=== PATIENT | male | born 1955 | race Caucasian/White ===

== ENCOUNTER → 2020-04-29 14:37 | Outpatient (CLI) | payer MEDICARE, SELFPAY ==
--- NOTE | ~2020-04-29 | US_ITS ---
EXAMINATION: US soft tissue groin RT DATE: 04/29/2020 15:12 INDICATION: Right inguinal mass TECHNIQUE: Multiple grayscale and Doppler ultrasound images of the right groin were obtained. COMPARISON: Left femur MRI dated 05/22/2014 FINDINGS: There are several normal sized right inguinal lymph nodes measuring up to 5 mm in maximal short axis diameter and which are comprised primarily of central echogenic fatty luis armando. There is a moderate-sized fat-containing direct right inguinal hernia which does not significantly change in size with Valsalv a. This along with a similar sized fat-containing left inguinal hernia have been present since MRI da aleja 05/22/2014. No other abnormal masses or fluid collections identified. IMPRESSION: 1. Moderate-sized fat-containing right inguinal hernia. Reviewed, dictated and finalized at location B. [employer]
== END ==
PROVIDERS: PCP Family Medicine Adolescent Medicine; Visit Provider Family Medicine Adolescent Medicine
DX: K40.90 Unilateral inguinal hernia, without obstruction or gangrene, not specified as recurrent (principal); R19.03 Right lower quadrant abdominal swelling, mass and lump
CPT/HCPCS: 76882

== ENCOUNTER 2020-07-02 10:19 | Outpatient (CLI) | payer MEDICARE, SELFPAY ==
--- NOTE | 2020-07-02 10:30 | ECG_ITS ---
Measurements Intervals [place] Rate: 74 P: 6 LA: 183 QRS: -15 QRSD: 96 T: 1 QT: 350 QTc: 388 Interpretive Statements SINUS RHYTHM VOLTAGE CRITERIA FOR LVH BORDERLINE T WAVE ABNORMALITY- INFERIOR LEADS BORDERLINE ECG Electronically Signed On 07-02-2020 10:54:22 CDT by Roney Monterroso D.O.
== END 2020-07-02 10:20 | disposition home or self-care (01) ==
LOC: ANHSURGERY 10:26
PROVIDERS: PCP Family Medicine Adolescent Medicine; Visit Provider Surgery
DX: I10 Essential (primary) hypertension (principal); Z01.818 Encounter for other preprocedural examination; R94.31 Abnormal electrocardiogram [ECG] [EKG]
CPT/HCPCS: 93005

== ENCOUNTER 2020-07-07 07:50 | Outpatient (CLI) | payer MEDICARE, SELFPAY ==
--- NOTE | ~2020-07-07 | XR_ITS ---
XR chest 2V DATE: 07/07/2020 09:10 INDICATION: Preoperative evaluation. Prostate cancer. Hypertension. Diabetes. TECHNIQUE: PA and lateral views COMPARISON: 03/02/2016 PA and lateral views FINDINGS: Normal heart size. No hilar or mediastinal enlargement. No pulmonary infiltrate or consolid ation, pleural effusion or pulmonary vascular congestion or pneumothorax. Degenerative spurring of the thoracic spine. IMPRESSION: No active cardiopulmonary disease Reviewed, dictated and finalized at location A.
[2020-07-07 09:12] LABS: Basophils Absolute Auto 0.1 K/mm3 (0.0-0.1); Basophils Percent Auto 0.8 % (0.2-1.2); Eosinophils Absolute Auto 0.3 K/mm3 (0-0.3); Eosinophils Percent Auto 4.2 % (0-4.4); Hematocrit 47.2 % (42.0-52.0); Hemoglobin 15.7 g/dL (14.0-18.0); Immature Granulocyte Absolute 0.02 K/mm3 (0.00-0.031); Immature Granulocyte Percent A 0.3 % (0-0.5); Lymphocytes Absolute Auto 1.57 K/mm3 (0.9-3.2); Lymphocytes Percent Auto 25.4 % (18.3-44.2); Mean Corpuscular HGB Conc 33.3 g/dl (32-36); Mean Corpuscular Volume 90.2 fl (80-100); Mean Platelet Volume 9.9 fl (7.4-10.4); Monocytes Absolute Auto 0.6 K/mm3 (0.1-0.6); Monocytes Percent Auto 9.1 % (2.6-8.5); Neutrophils Absolute Auto 3.7 K/mm3 (1.3-6.7); Neutrophils Percent Auto 60.2 % (45.5-73.1); Platelet Count Result 210 k/mm3 (150-375); Red Blood Count 5.23 M/mm3 (4.6-6.20); Red Cell Distribution Width 13.4 % (11.5-14.5); White Blood Count 6.2 K/mm3 (4.5-10.0)
[2020-07-07 09:19] LABS: Add Urine Microscopic? YES; Appearance Urine Clear (Clear); Bilirubin Urine Negative (Negative); Blood Urine 2+ (Negative); Color Urine Yellow (Yellow); Glucose Urine UA Negative (Negative); Ketones Urine Negative (Negative); Leukocyte Esterase Ur Negative LEU/UL (Negative); Mucus Urine Rare /lpf; Nitrate Urine Negative (Negative); Protein Urine Negative (Negative); Specific Grav Ur 1.013 (1.001-1.035); Urobilinogen Urine Negative mg/dL (<2.0); WBC Urine 0-3 /hpf
[2020-07-07 09:22] LABS: Alanine Aminotransferase 29 U/L (4-50); Albumin Level 4.5 g/dL (3.5-5.1); Alkaline Phosphatase 68 U/L (38-126); Anion Gap 5 mmol/L (8-16); Aspartate Amino Transferase 22 U/L (17-59); Bilirubin,Total 0.5 mg/dL (0.2-1.3); Blood Urea Nitrogen 19 mg/dL (9-20); Calcium 9.4 mg/dL (8.4-10.2); Carbon Dioxide 34 mmol/L (22-30); Chloride 103 mmol/L (98-107); Estimated Glomerular Filt Rate 55; Glucose 136 mg/dL (75-110); Sodium 142 mmol/L (137-145)
[2020-07-07 09:25] LABS: Partial Thromboplastin Time 27.2 SECONDS (22.3-36.8); Prothrombin Time 13.8 Seconds (11.1-14.7)
== END 2020-07-07 07:51 | disposition home or self-care (01) ==
LOC: ANHSURGERY 07:53
PROVIDERS: PCP Family Medicine Adolescent Medicine; Visit Provider Urology
DX: C61 Malignant neoplasm of prostate (principal); Z01.818 Encounter for other preprocedural examination; I10 Essential (primary) hypertension; E11.9 Type 2 diabetes mellitus without complications
CPT/HCPCS: 36415; 71046; 80053; 81001; 85025; 85610; 85730; 86850; 86900; 86901

== ENCOUNTER 2020-07-08 07:51 | Outpatient (CLI) | payer MEDICARE, SELFPAY ==
--- NOTE | ~2020-07-08 | XR_ITS ---
XR tibia fibula LT 2V DATE: 07/08/2020 12:07 INDICATION: Abnormal bone scan with increased uptake at tibial shaft TECHNIQUE: AP and lateral views of left lower leg COMPARISON: 07/08/2020 radionuclide bone scan FINDINGS: There is a 10 cm length of smooth organized ossification along the anterolateral proximal t ibial shaft, without underlying cortical bone destruction. There is no significant change compared to 08/03/2014 left knee postoperative examination. The findings are consistent with chronic benign proces s. No recent fracture or dislocation, periosteal reaction or bone destruction is noted otherwise. Left knee arthroplasty. IMPRESSION: Chronic organized ossification along the anterolateral proximal tibial shaft, stable sinc e 08/03/2014, consistent with chronic benign process Left knee arthroplasty Reviewed, dictated and finalized at location A. IMPRESSION: Chronic organized ossification along the anterolateral proximal tib ial shaft, stable since 08/03/2014, consistent with chronic benign process Left knee arthroplasty
--- NOTE | ~2020-07-08 | CT_ITS ---
EXAMINATION: CT abdomen pelvis w con DATE: 07/08/2020 08:31 INDICATION: Prostate cancer TECHNIQUE: Computed tomography (CT) of the abdomen and pelvis was performed with 100 cc Omnipaque 350 intravenous contrast. Automated exposure control and iterative reconstruction technique were employe d. Exam dose: 1419.51 mGy-cm total exam DLP. COMPARISON: 04/20/2008 CT abdomen FINDINGS: The lung bases are clear. Normal heart size. No pericardial or pleural effusion. Cholelithiasis is suggested but not definitively confirmed. Consider gallbladder ultrasound examinati on. No gallbladder wall thickening or pericholecystic fluid collection or fat stranding. No bile duct or pancreatic duct dilatation. No hepatic, splenic, pancreatic, adrenal or right renal space-occupying mass lesion is evident. Left parapelvic renal cysts are noted. No urinary tract calculus or hydroureteronephrosis. Normal caliber of the abdominal aorta. No intraperitoneal or retroperitoneal or pelvic mass lesion or adenopathy or ascites. Mild to moderate prostate enlargement. Mild to moderate diffuse bladder wall thickening. Prominent bilateral fat-containing inguinal hernias. Normal appendix. No bowel obstruction, bowel wall thickening, pneumatosis or intraperitoneal free air is detected. There are degenerative changes of the thoracic and lumbar spine including prominent degenerative rosas ge at the apophyseal joints of the lumbar and lumbosacral area with associated grade 1 anterolisthesi s at L4-5. Moderately prominent degenerative disc disease and minimal retrolisthesis is noted at L2-3 and L3-4. No suspicious osteolytic or osteoblastic lesions are noted. IMPRESSION: Possible cholelithiasis; recommend gallbladder ultrasound for more definitive determinat ion Moderate moderate prostate enlargement and mild to moderate diffuse bladder wall thickening Prominent bilateral fat-containing inguinal hernias Reviewed, dictated and finalized at Location A. Reviewed, dictated and finalized at location A. IMPRESSION: Possible cholelithiasis; recommend gallbladder ultrasound for more definitive determination Moderate moderate prostate enlargement and mild to moderate diffuse bladder wal l thickening Prominent bilateral fat-containing inguinal hernias
--- NOTE | ~2020-07-08 | NM_ITS ---
EXAMINATION: NM bone scan whole body DATE: 07/08/2020 12:05 INDICATION: Prostate cancer. TECHNIQUE: 25.1 mCi Tc-99m HDP was administered intravenously. Delayed whole-body scintigrams were o btained. COMPARISON: CT abdomen and pelvis 07/08/2020, left tibia and fibula radiographs 07/08/2020, left knee r adiograph 08/03/2014 FINDINGS: There are bilateral total knee arthroplasties with increased activity adjacent to the arthr oplasties, which is nonspecific and may be normal. There is increased activity at left tibial diaphys is correlating with chronic cortical thickening on radiographs. There is joint-centered increased act ivity in the spine, shoulders, and feet, likely osteoarthritis. IMPRESSION: 1. No evidence of metastatic disease. Reviewed, dictated and finalized at location B.
== END 2020-07-08 07:52 | disposition home or self-care (01) ==
PROVIDERS: PCP Family Medicine Adolescent Medicine; Visit Provider Urology
DX: C61 Malignant neoplasm of prostate (principal)
CPT/HCPCS: 73590; 74177; 78306; A9561; Q9967

== ENCOUNTER → 2020-07-12 01:16 | Outpatient (CLI) | payer MEDICARE, SELFPAY ==
[2020-07-12 18:48] LABS: SARS-CoV-2 RNA PCR Negative
== END ==
PROVIDERS: PCP Family Medicine Adolescent Medicine; Visit Provider Surgery
DX: Z01.812 Encounter for preprocedural laboratory examination (principal); Z20.822 Contact with and (suspected) exposure to COVID-19
CPT/HCPCS: C9803; U0003; U0005

== ENCOUNTER 2020-07-15 01:50 | Day surgery (SDC) | payer MEDICARE, SELFPAY ==
[2020-06-30 14:30] VITALS: BMI 38.0
[2020-07-07 08:36] VITALS: BMI 39.0
--- NOTE | 2020-07-09 07:59 | PM.IMHP ---
H&P: HPI History of Present Illness Date/Time: 07/09/20 07:59 64-year-old gentleman who recently presented with a PSA of 5.6. Prostate ultrasound and biopsy revealed 4 of 12 cores with Barrett 4+3=[address] [place] [address] scan of the abdomen and pelvis, bone scan and chest x-ray showed no evidence of metastatic disease. He is also known to have an inguinal hernia and was scheduled for herniorrhaphy by Dr. Robert. His prostate volume by ultrasound was 22.8 cc. After careful discussion of therapeutic options including active surveillance, radiation therapy in its various forms, robotic prostatectomy and androgen deprivation he has elected for a simultaneous herniorrhaphy and robotic assisted radical prostatectomy with bilateral pelvic lymphadenectomy. Chief Complaint: Prostate cancer Review of Systems Cardiovascular: Cardiovascular: Denies chest pain, Denies lightheadedness, Denies palpitations and Denies dyspnea Respiratory: Respiratory: Denies dyspnea Gastrointestinal: Gastrointestinal: Denies diarrhea, Denies nausea and Denies vomiting Genitourinary: Genitourinary: Denies hematuria and Denies dysuria Endocrine: Endocrine: Denies palpitations [facility] Past Medical History Medical History GERD (gastroesophageal reflux disease) High cholesterol History of diabetes mellitus HTN (hypertension) Surgical History Surgical History (Updated 05/27/20 @ 08:33 by Maribel Garza [facility]) History of bilateral knee replacement History of surgery on arm both wrist Family History Family History Father Colon cancer Hypertension Mother Hypertension Blind Other Hypertension Social History Social History Smoking status: Never smoker Alcohol intake: current Drinks per week: 4 Substance use: unknown Additional occupation/education comments: Pharmacist Gender identity (if verbalized by the patient): Male Spiritual care concerns: No Meds Home Medications and Allergies Home Medications Medication Instructions Recorded Confirmed Type cetirizine 10 mg capsule 10 mg PO DAILY 05/07/20 07/07/20 History famotidine 20 mg tablet 20 mg PO PRN PRN 05/07/20 07/07/20 History lisinopril 20 mg tablet 20 mg PO QAM 05/07/20 07/07/20 History lorazepam 2 mg tablet 1 mg PO BID PRN 05/07/20 07/07/20 History multivitamin 1 tablet PO DAILY 05/07/20 07/07/20 History omega-3 fatty acids 1,000 mg 1,000 mg PO DAILY 05/07/20 07/07/20 History capsule pantoprazole 20 mg tablet,delayed 40 mg PO QAM 05/07/20 07/07/20 History release tadalafil 5 mg tablet 5 mg PO DAILY 05/27/20 07/07/20 History atorvastatin 40 mg PO QAM 06/30/20 07/07/20 History Allergies Allergy/AdvReac Type Severity Reaction Status Date / Time No Known Allergies Allergy Unverified 07/07/20 08:52 Exam Const: General: no acute distress Resp: Effort & Inspection: normal respiratory effort GI: Inspection: non-distended GI Palp: No abdominal tenderness and No Guarding due to palpation present (GI) Auscultation: normal bowel sounds Assessment and Plan Assessment and plan (1) Prostate cancer: Code(s): C61 - Malignant neoplasm of prostate Status: Acute (2) Elevated PSA: Code(s): R97.20 - Elevated prostate specific antigen [PSA] Status: Acute Assessment and Plan: Robotic assisted radical prostatectomy with bilateral pelvic lymphadenectomy. Alternative therapeutic options for his prostate cancer as outlined above. He is aware the risk of this procedure including, but not limited to, adverse cardiopulmonary events, rectal injury, urinary incontinence and erectile dysfunction.
--- NOTE | 2020-07-14 10:02 | WPDANESEPPF ---
Anes - Initial Pre Proc Eval Procedure: Operation Date: 07/15/20 07:30 Proposed Procedures p Robotic Assisted Laparoscopic Prostatectomy with Bilateral Pelvic Lymph Node Dissection - Mingo Campoverde MD s Right Inguinal Hernia Repair(Right) - Milo Robert MD Date/Time: 07/14/20 10:02 Surgeon: Mingo Campoverde MD Pre Op Diagnosis: Right inguinal hernia Patient Data Age: 64 Gender: M Height: 1.73 m Weight: 116.5 kg Allergies Allergy/AdvReac Type Severity Reaction Status Date / Time No Known Allergies Allergy Verified 07/15/20 15:50 Home Medications Medication Instructions Recorded Confirmed Type cetirizine 10 mg capsule 10 mg PO DAILY 05/07/20 07/15/20 History famotidine 20 mg tablet 20 mg PO PRN PRN 05/07/20 07/15/20 History lisinopril 20 mg tablet 20 mg PO QAM 05/07/20 07/15/20 History lorazepam 2 mg tablet 1 mg PO BID PRN 05/07/20 07/15/20 History multivitamin 1 tablet PO DAILY 05/07/20 07/15/20 History omega-3 fatty acids 1,000 mg 1,000 mg PO DAILY 05/07/20 07/15/20 History capsule pantoprazole 20 mg tablet,delayed 40 mg PO QAM 05/07/20 07/15/20 History release tadalafil 5 mg tablet 5 mg PO DAILY 05/27/20 07/15/20 History atorvastatin 40 mg PO QAM 06/30/20 07/15/20 History ciprofloxacin HCl 500 mg PO Q12H #10 tablet 07/16/20 Rx docusate sodium [Colace] 100 mg PO DAILY #30 cap 07/16/20 Rx hydrocodone-acetaminophen 1 - 2 tablet PO Q6H PRN #20 tablet 07/16/20 Rx hyoscyamine sulfate 0.125 mg PO Q6H PRN #20 tablet 07/16/20 Rx Patient hx anesthesia problems: none Family hx anesthesia problems: none PMFSH Past Medical History Medical History (Updated 07/15/20 @ 17:01 by Ella Rai NP) Anxiety GERD (gastroesophageal reflux disease) High cholesterol History of diabetes mellitus History of prostate cancer HTN (hypertension) JENNIFER (obstructive sleep apnea) Walker as ambulation aid Surgical History Surgical History (Updated 07/15/20 @ 16:54 by Ella Rai NP) H/O prostatectomy H/O right inguinal hernia repair History of bilateral knee replacement History of surgery on arm both wrist Family History Family History Father Colon cancer Hypertension Mother Hypertension Blind Other Hypertension Social History Social History (Updated 07/15/20 @ 16:56 by Ella Rai NP) Social History: The patient is . Is a retired pharmacist. The patient's daughter is the durable power heel attacher [employer]. The patient desires to be a full code. The patient stated he used to drink alcohol in his middle a just but no longer drinks any alcohol. He is lifelong non smoker. No alcohol or illicit drugs. He only has the 1 daughter. Smoking status: Never smoker Alcohol intake: never Drinks per week: 4 Substance use: never Additional occupation/education comments: Pharmacist Gender identity (if verbalized by the patient): Male Spiritual care concerns: No Anes - Eval Final PreProcedure Day of Procedure 07/14/20 10:02 Patient weight: obese Heart: regular rate and rhythm Lungs: clear to auscultation and normal air movement Airway: Mallampati scale class II Neurological: alert and oriented Last oral intake: >/= 8 hours ASA classification: III Emergent: no Anesthetic plan: proceed Anesthesia type and monitoring: general ETT and standard monitoring Informed Consent: The patient's anesthetic plan and its attendant risks and benefits were discussed with the patient/family/POA. Questions were solicited and answers provided to the satisfaction of the patient/family/POA.
[2020-07-15] VITALS (17 sets, daily range): BP systolic 97–136; BP diastolic 57–81; PULSE 78–106; RESP 10–18; TEMP 36.2–37.1; O2SAT 94–100
--- NOTE | 2020-07-15 06:32 | WPDHPUPDATE1 ---
History and Physical Update Update Date/Time: 07/15/20 06:32 History and Physical has been reviewed, including an updated exam of the patient. There are NO changes in the patient's condition. Risks, benefits, and alternatives have been discussed and questions answered. Patient agrees to proceed with procedure.
[2020-07-15] MEDS: ACETAMINOPHEN 500 MG TABLET 1000 MG PO (06:46)
[2020-07-15] MEDS: KETOROLAC 15 MG/ML VIAL (*BKC) IV PUSH ×2 (06:48→15:47)
--- NOTE | 2020-07-15 06:57 | PM.IMHP ---
H&P: HPI History of Present Illness Date/Time: 07/15/20 06:57 Chief Complaint: right inguinal hernia Narrative: Patient has a painful bulge in right groin. Exam and imaging show a large right inguinal hernia. There is no left inguinal hernia on exam and no symptoms. He has also been found to have prostate cancer. He is taken to surgery now for both a robotic prostatectomy and right inguinal hernia repair. Please see details of prostate cancer and surgery per Dr. Campoverde' note. Review of Systems Constitutional: Constitutional: Denies chills and Denies fever(s) Cardiovascular: Cardiovascular: Denies chest pain, Denies diaphoresis, Denies dyspnea and Denies paroxysmal nocturnal dyspnea Respiratory: Respiratory: Denies chest congestion, Denies cough and Denies dyspnea Integumentary/Breasts: Skin/Breast: Denies lesions and Denies rash PMFSH Past Medical History Medical History (Updated 07/15/20 @ 07:02 by Milo Robert MD) GERD (gastroesophageal reflux disease) High cholesterol History of diabetes mellitus History of prostate cancer HTN (hypertension) JENNIFER (obstructive sleep apnea) Walker as ambulation aid Surgical History Surgical History (Updated 05/27/20 @ 08:33 by Maribel Garza [facility]) History of bilateral knee replacement History of surgery on arm both wrist Family History Family History Father Colon cancer Hypertension Mother Hypertension Blind Other Hypertension Social History Social History Smoking status: Never smoker Alcohol intake: current Drinks per week: 4 Substance use: unknown Living arrangements: alone Additional occupation/education comments: Pharmacist Gender identity (if verbalized by the patient): Male Spiritual care concerns: No Meds Home Medications and Allergies Home Medications Medication Instructions Recorded Confirmed Type cetirizine 10 mg capsule 10 mg PO DAILY 05/07/20 07/07/20 History famotidine 20 mg tablet 20 mg PO PRN PRN 05/07/20 07/07/20 History lisinopril 20 mg tablet 20 mg PO QAM 05/07/20 07/07/20 History lorazepam 2 mg tablet 1 mg PO BID PRN 05/07/20 07/07/20 History multivitamin 1 tablet PO DAILY 05/07/20 07/07/20 History omega-3 fatty acids 1,000 mg 1,000 mg PO DAILY 05/07/20 07/07/20 History capsule pantoprazole 20 mg tablet,delayed 40 mg PO QAM 05/07/20 07/07/20 History release tadalafil 5 mg tablet 5 mg PO DAILY 05/27/20 07/07/20 History atorvastatin 40 mg PO QAM 06/30/20 07/07/20 History Allergies Allergy/AdvReac Type Severity Reaction Status Date / Time No Known Allergies Allergy Unverified 07/07/20 08:52 Exam Const: General: comfortable, no acute distress, alert and awake HENMT: Head: normocephalic and atraumatic Mouth: Yes Normal oral and palatal mucosa present Eyes: Conjunctivae: conjunctivae normal Pupils: Equal, round and reactive pupils present EOM: EOMs intact bilaterally Neck: Neck: normal visual inspection, no lymphadenopathy and nontender Resp: Effort & Inspection: normal respiratory effort Auscultation: clear to auscultation bilaterally Cardio: Rate: regular rate Rhythm: regular rhythm Heart sounds: no gallops, no murmurs and no rubs GI: Inspection: non-distended GI Palp: Yes Soft to palpation, No Tenderness to palpation present (GI), No Hepatomegaly present and No Splenomegaly present : Male General Exam: Yes hernia (right inguinal, large, reducible; No left inguinal hernia) Penis: Yes normal penis Scrotum: scrotum normal Testes: Testes normal Skin: Lesions: no lesions Rashes: no rashes Neuro: General: no focal motor deficits and CN's II-XI intact bilaterally Cranial nerves: Yes Equal, round and reactive pupils present, Yes Bilaterally intact EOM present, Yes facial symmetry and Yes Midline tongue present Speech: normal speech Motor exam (neuro): 5/5 motor strength pr
[2020-07-15] MEDS: LACTATED RINGERS 1,000 ML 30 ML IV CONT ×2 (07:01→13:02)
--- NOTE | 2020-07-15 07:03 | WPDHPUPDATE1 ---
History and Physical Update Update Date/Time: 07/15/20 07:03 History and Physical has been reviewed, including an updated exam of the patient. There are NO changes in the patient's condition. Risks, benefits, and alternatives have been discussed and questions answered. Patient agrees to proceed with procedure.
[2020-07-15 07:07] LABS: Glucose Point of Care 128 mg/dl (65-105)
[2020-07-15] MEDS: ceFAZolin 2 GM/D5W 50 ML 2 GM/50 ML BAG IVPB (07:22)
[2020-07-15] MEDS: BUPIVACAINE HCL 0.5% PF 30 ML VIAL INFILTRATE (10:20)
--- NOTE | 2020-07-15 11:16 | PM.PROC ---
Procedure Note - Detailed Date of procedure: 07/15/20 Pre-op diagnosis: Prostate cancer / Right inguinal hernia Post-op diagnosis: same Procedure performed: 1. Robotic assisted laparoscopic prostatectomy with bilateral pelvic lymphadenectomy 2. right inguinal herniorrhaphy (Dr. Robert) Description of procedure: The patient was brought to the operative suite, where he was prepped and draped in routine sterile fashion while in a dorsal lithotomy, deep Trendelenburg position. A supraumbilical 10 mm trocar was placed after insufflation of the abdomen with a Veress needle. Three robotic ports were then placed under direct vision. Two of these were placed in the right lower quadrant - 10 cm and 20 cm lateral to, and in line with, the umbilicus. A third robotic trocar was placed 10 cm to the left of the umbilicus, and 20 cm to the left of the umbilicus, a 12 mm standard laparoscopic trocar was placed to be used as an contact lens assistant port. Lastly, a 5 mm trocar was placed in the left upper quadrant midway between the umbilicus and the left robotic trocar. Attention was then turned to the prostatectomy. I opted for a posterior approach in this patient. An incision was made in the parietal peritoneum along the posterior bladder/posterior prostate about 2 cm above the reflection of the peritoneum over the anterior rectum. The seminal vesicles and vas deferens were immediately identified. Dissection is undertaken in a fashion so as to avoid electrocautery as much as possible, particularly near the tips of the seminal vesicles. Dissection was also carried out in the midline so as to avoid any encounters with the ureters. The vas deferens and the seminal vesicles were dissected in their entirety to the base of the prostate. The plane anterior to Denoviller's fascia, anterior to the rectum and posterior to the prostate was then developed. I then dropped the bladder by incising the anterior parietal peritoneum just lateral to the median umbilical ligaments bilaterally. The bladder was dropped from the anterior abdominal and pelvic wall. The endopelvic fascia was identified and incised bilaterally, allowing for dissection of the posterior-lateral aspect of the prostate. The puboprostatic ligaments were transected near their origin from the posterior pubic ramus. This posterior lateral dissection of the prostate is also undertaken in a fashion so as to avoid electrocautery as much as possible. The dorsal vein of the penis is then secured with an 0 -Vicryl ligature. Attention is then turned to the bladder neck. The anterior bladder neck is incised at the vesico-prostatic junction. The previously placed urethral catheter was drawn through the urethrotomy. A very small bladder neck was maintained throughout the remainder of this dissection. The posterior bladder neck was incised in a fashion so as to avoid any injury to the ureteral orifices. Again, the small aperture of the bladder neck was maintained. The previously dissected vas deferens and the seminal vesicles were brought through the posterior bladder neck incision. The lateral prostatic pedicles were then carefully dissected from the lateral aspect of the prostate bilaterally. The prostatic pedicles were secured with Weck clips and transected. The neurovascular bundles were carefully dissected from the posterior-lateral aspect of the prostate. The dorsal vein of the penis was incised with electrocautery. Using cold scissors, the urethra was incised. After withdrawing the previously placed urethral catheter, the posterior urethra was sharply incised, as was the rectalurethralis muscle. Attention was then turned to a bilateral pelvic lymphadenectomy. The limits of this dissection were similar bilaterally. Specifically, the limits were the bifurcation of the common iliac vein proximally, the inguinal ligament distally, the obturator nerve posteriorly and the anterior aspect to the external iliac vein laterally. This dissection w
[2020-07-15] MEDS: ceFAZolin SODIUM 1 GM VIAL IV PUSH (11:33)
[2020-07-15 13:11] LABS: Glucose Point of Care 169 mg/dl (65-105)
--- NOTE | 2020-07-15 13:22 | P.OP_ITS ---
Procedure Note - Detailed Date of procedure: 07/15/20 Pre-op diagnosis: Right inguinal hernia Right inguinal hernia Post-op diagnosis: other (Sliding right inguinal hernia) Procedure performed: Repair sliding right inguinal hernia Description of procedure: Following the robotic prostatectomy, the patient was taken out of lithotomy. The right groin area was prepped and draped. The proposed incision was marked on the skin. Local was infiltrated into the skin and the deeper subcutaneous tissues. Incision was made and deepened through the subcutaneous. Crossing veins were cauterized and divided. We encountered the hernia sac before we came across the external oblique aponeurosis as it was still somewhat distended from the insufflation associated with laparoscopic prostatectomy. Dissection was carried through Jessica's fascia down to the external oblique aponeurosis. The aponeurosis was exposed as was the external ring. Additional local anesthesia was infiltrated deep to the aponeurosis in the area of the spermatic cord and inguinal canal contents. The aponeurosis was opened laterally and extended medially through the external ring. The leaves of the aponeurosis were dissected free from the spermatic cord. The ileoinguinal nerve was carefully preserved throughout the dissection and was left attached to the spermatic cord. The cord was then mobilized medially on a [place] drain. The cord was dissected back to the internal ring. Dissection was then carried out in the anteromedial spermatic cord. There was a large lipoma of the cord which was dissected and eventually transected near the internal ring. The hernia sac was found and opened. The sac was dissected free from the inguinal canal contents. It was evident the urinary bladder was making up the medial wall of the hernia sac. The sac was then dissected back to a high dissection. It was dunked into the retroperitoneum. An 8 centimeter Parietex chilkoot was chosen. It was folded to form a plug. It was placed in the defect. The edges were sutured to the transversalis fascia with interrupted 3 0 Vicryl suture. The hernia defect was then partially closed with some additional 3 0 Vicryl suture. The patch was then cut to the appropriate size and placed over the inguinal canal floor. The lateral leaves were passed beyond the cord. The cord and ileoinguinal nerve were then laid over the patch. The external oblique apo neurosis was closed with interrupted 3 0 Vicryl suture. Jessica's fascia was closed with interrupted 3 0 Vicryl suture. The subcutaneous was closed with interrupted 4 0 Vicryl suture. Four 0 Vicryl subcuticular skin sutures were placed. The skin was closed finally with a running 4 0 Monocryl skin suture. The wound was dressed with Exofin surgical adhesive. The patient was awakened and taken to recovery in good condition. Sponge and needle counts were correct x2. Implants: 8 cm Parietex hernia mesh system Anesthesia: GETA and local (0.5% Marcaine with Exparel) Surgeon: Milo Robert MD Clinical Laboratory Service Teacher: Jg AMBROCIO Estimated blood loss (mL): 25 Drains: No Packing: No Pathology: none sent Complications: None Condition: stable Disposition: PACU Findings: Large sliding right inguinal hernia with urinary bladder making up the medial wall of the hernia sac
[2020-07-15] MEDS: fentaNYL CITRATE INJ (*CRX) 100 MCG/2 ML VIAL 25 MCG IV PUSH ×2 (13:49→13:52)
--- NOTE | 2020-07-15 14:35 | ADMGEN ---
This patient, William Jimenez, was admitted to 2 Medical Room 244-. Patient/family oriented to hospital policies and general routines including ID bracelet, bed and alarms, visiting hours, pain management, procedures, bathroom and other care routines, personal items, smoking policy, room service/diet, and visiting hours. Information on how to activate the Rapid Response Team has been discussed. Patient/Family are encouraged to report perceived risks to care and to ask questions if they do not understand what they are told or what they should do.
--- NOTE | 2020-07-15 14:44 | ECG_ITS ---
Measurements Intervals [place] Rate: 87 P: 27 VT: 188 QRS: 9 QRSD: 110 T: 39 QT: 369 QTc: 444 Interpretive Statements SINUS RHYTHM DELAYED PRECORDIAL R/S TRANSITION BORDERLINE ECG Electronically Signed On 07-15-2020 15:04:11 CDT by Roney Monterroso D.O.
[2020-07-15 15:31] LABS: Troponin I < 0.012 ng/mL (0.000-0.034)
[2020-07-15] MEDS: LACTATED RINGERS 1,000 ML 125 ML IV CONT (16:30)
[2020-07-15] MEDS: ATORVASTATIN 40 MG TABLET PO (16:36)
[2020-07-15] MEDS: DOCUSATE SODIUM 100 MG CAPSULE PO (16:36)
[2020-07-15] MEDS: lisinopriL 20 MG TABLET PO (16:36)
[2020-07-15] MEDS: PANTOPRAZOLE 40 MG TABLET PO (16:36)
--- NOTE | 2020-07-15 16:42 | PM.IMCN ---
Assessment and Plan Assessment and plan (1) Chest pain: Code(s): R07.9 - Chest pain, unspecified Status: Acute Assessment and Plan: Patient does have a history of gastroesophageal reflux disease. Continue with patient's Pepcid. The patient's EKG was comparable to the 1 that was taken earlier this month. Will continue to trend cardiac enzymes. Explained to the patient if his cardiac enzymes to increase and will have to move him to a higher level of care. The patient stated he had relief of discomfort with his pain medication. This could possibly be GERD or anxiety. The patient stated that he has had 2 stress test in the past that he failed and then was taken for cardiac catheterization x2 and stated that he only had 30% blockage his last catheterization. (2) H/O right inguinal hernia repair: Code(s): Z98.890 - Other specified postprocedural states; Z87.19 - Personal history of other diseases of the digestive system Status: Acute Assessment and Plan: Postop care per Dr. fitch. The patient has MARNIE and SCDs on for DVT prophylaxis. (3) H/O prostatectomy: Code(s): Z90.79 - Acquired absence of other genital organ(s) Status: Acute Assessment and Plan: Postop care per Dr. gao. Pain management per surgical team. DVT prophylaxis per surgery. (4) JENNIFER (obstructive sleep apnea): Code(s): G47.33 - Obstructive sleep apnea (adult) (pediatric) Status: Chronic Assessment and Plan: Continue with home CPAP (5) Anxiety: Code(s): F41.9 - Anxiety disorder, unspecified Status: Chronic Assessment and Plan: Patient is on lorazepam and that has been continued. (6) HTN (hypertension): Qualifiers: Hypertension type: essential hypertension Qualified Code(s): I10 - Essential (primary) hypertension Code(s): I10 - Essential (primary) hypertension Status: Chronic Assessment and Plan: Continue with lisinopril and monitor renal function. (7) High cholesterol: Code(s): E78.00 - Pure hypercholesterolemia, unspecified Status: Chronic Assessment and Plan: Continue atorvastatin HPI Data of Consult Consult date: 07/15/20 Requesting Physician: Mingo Gao MD Primary Care Provider: Eduardo Cantrell MD Consult Narrative Narrative: William Jimenez is a 64 year old male who has a history of having prostate cancer with a PSA of 5.6. The patient was also noted to have a right inguinal hernia. He underwent a prostatectomy as well served right inguinal hernia repair today. Please see Dr. nicole note for surgery today as well as Dr. gao. The patient was complaining of having some chest pressure. A stat EKG was performed. As sinus rhythm delayed precordial or VS transition. Borderline EKG. We reviewed his last EKG from the which also showed some borderline T-wave abnormalities. The patient stated that he had midsternal chest pressure but not really pain. It did not radiate anywhere. He did not become diaphoretic but he said he felt slightly short of breath. He does have a history of gastroesophageal reflux disease but he felt that this was different. He denied any nausea or vomiting with this. The patient was given IV pain medication which he stated took his pain away. The patient was placed on telemetry and it appears to be sinus rhythm do sinus tachycardia with a heart rate just barely being over 100. The patient was admitted for regular same-day surgery and the hospitalist group was asked to consult on the date of service 07/15/2020. Review of Systems Constitutional: Constitutional: Reports as per HPI and Reports no additional constitutional complaints Eyes: Eyes: Reports as per HPI and Reports no additional eye complaints ENT: Reports system reviewed and no additional complaints, except as documented and Reports Normal hearing present Cardiovascular: Cardiovascular: Reports no additio
[2020-07-15 18:19] LABS: Troponin I < 0.012 ng/mL (0.000-0.034)
[2020-07-15] MEDS: HYOSCYAMINE SULFATE 0.125 MG TABLET SUBLINGUAL (20:23)
[2020-07-15 21:20] LABS: Troponin I < 0.012 ng/mL (0.000-0.034)
[2020-07-15] MEDS: WATER FOR IRRIGATION, STERILE 1,000 ML BOTTLE 1000 ML (22:00)
[2020-07-16] VITALS (8 sets, daily range): BP systolic 98–123; BP diastolic 59–66; PULSE 86–100; RESP 16–20; TEMP 36.4–36.7; O2SAT 97–100
[2020-07-16] MEDS: LACTATED RINGERS 1,000 ML 125 ML IV CONT (01:00)
[2020-07-16] MEDS: HYOSCYAMINE SULFATE 0.125 MG TABLET SUBLINGUAL ×2 (04:12→14:17)
[2020-07-16 05:43] LABS: Hematocrit 33.9 % (42.0-52.0); Hemoglobin 11.5 g/dL (14.0-18.0)
[2020-07-16 06:02] LABS: Anion Gap 4 mmol/L (8-16); Blood Urea Nitrogen 18 mg/dL (9-20); Carbon Dioxide 27 mmol/L (22-30); Chloride 103 mmol/L (98-107); Estimated CRCL calculation 61 ml/min; Estimated Glomerular Filt Rate 55; Glucose 130 mg/dL (75-110); Potassium 3.9 mmol/L (3.4-5.0); Sodium 134 mmol/L (137-145)
--- NOTE | 2020-07-16 06:45 | WPDUROPN2 ---
Progress Note: A&P Assessment and Plan (1) Prostate cancer: Code(s): C61 - Malignant neoplasm of prostate Status: Chronic (2) Anxiety: Code(s): F41.9 - Anxiety disorder, unspecified Status: Chronic Assessment and Plan: Transient chest pressure has resolved - not clinically significant. Appreciate Tomas Rai assistance. Otherwise, doing well. Ambulating and tolerating diet. Likely home this afternoon. Scrotal bruising without swelling not significant. Subjective Subjective Date/Time Seen: 07/16/20 06:45 Comfortable now, no problems overnight. Transient, atypical chest pressure yesterday - EKG and troponin unremarkable. Review of Systems Cardiovascular: Cardiovascular: Denies chest pain, Denies lightheadedness, Denies palpitations and Denies dyspnea Respiratory: Respiratory: Denies dyspnea Gastrointestinal: Gastrointestinal: Denies diarrhea, Denies nausea and Denies vomiting Genitourinary: Genitourinary: Denies hematuria and Denies dysuria Endocrine: Endocrine: Denies palpitations Exam Const: General: no acute distress Resp: Effort & Inspection: normal respiratory effort GI: Inspection: non-distended GI Palp: No abdominal tenderness and No Guarding due to palpation present (GI) Auscultation: normal bowel sounds : Male General Exam: Yes ecchymosis Objective Data Vital Signs Vital Signs: Vital Signs - 24 hr 07/15/20 13:05 07/15/20 13:20 07/15/20 13:35 Temperature 97.7 F Pulse Rate 90 88 81 Respiratory Rate 14 14 10 L Blood Pressure 123/76 124/78 127/80 Pulse Oximetry 100 100 100 07/15/20 13:50 07/15/20 14:05 07/15/20 14:20 Temperature Pulse Rate 86 87 90 Respiratory Rate 10 L 12 18 Blood Pressure 122/77 126/81 135/77 Pulse Oximetry 98 100 98 07/15/20 14:35 07/15/20 14:50 07/15/20 15:20 Temperature 97.1 F L 97.4 F L 97.1 F L Pulse Rate 92 89 89 Respiratory Rate 18 18 18 Blood Pressure 133/79 124/76 126/72 Pulse Oximetry 100 100 95 07/15/20 16:20 07/15/20 16:30 07/15/20 18:00 Temperature 97.7 F 98.7 F Pulse Rate 101 H 106 H 98 Respiratory Rate 16 18 Blood Pressure 127/77 107/61 Pulse Oximetry 94 96 07/15/20 20:00 07/15/20 20:14 07/15/20 22:53 Temperature 98.5 F Pulse Rate 99 99 78 Respiratory Rate 16 16 Blood Pressure 111/62 Pulse Oximetry 95 95 96 07/15/20 23:58 07/16/20 00:00 07/16/20 00:06 Temperature 97.7 F Pulse Rate 94 100 Respiratory Rate 18 Blood Pressure 97/57 L 98/62 L Pulse Oximetry 98 07/16/20 03:57 07/16/20 04:00 Temperature 97.5 F L Pulse Rate 87 86 Respiratory Rate 16 Blood Pressure 117/59 L Pulse Oximetry 97 Intake/Output Intake/Output: Intake & Output 07/13/20 07/14/20 07/15/20 07/16/20 23:59 23:59 23:59 23:59 Intake Total 2210 1600 Output Total 205 900 Balance 2004 700 Meds/Results Medications: Active Medications Generic Name Dose Route Start Last Admin Trade Name Freq PRN Reason Stop Dose Admin Atorvastatin Calcium 40 mg 07/15/20 14:50 07/15/20 16:36 Atorvastatin 40 Mg Tablet PO 40 mg QAM MISAEL Administration Docusate Sodium 100 mg 07/15/20 17:00 07/15/20 16:36 Docusate Sodium 100 Mg Capsule PO 100 mg BID MISAEL Administration Famotidine 20 mg 07/15/20 14:29 Famotidine 20 Mg Tablet PO PRN PRN Gastric Reflux Hyoscyamine 0.125 mg 07/15/20 14:29 07/16/20 04:12 Hyoscyamine Sulfate 0.125 Mg Tablet SUBLINGUAL 0.125 mg Q4H PRN Administration Bladder Spasm Lactated Ringer's 1,000 mls @ 125 mls/hr 07/15/20 14:29 07/16/20 01:00 Lr - Lactated Ringers Iv IV CONT 125 mls/hr .Q8H MISAEL Administration Acetaminophen 1,000 mg in 100 mls @ 400 mls/hr 07/15/20 16:00 07/16/20 04:25 Ofirmev 1,000 Mg Ivpb IVPB 07/16/20 16:01 Infused Q6H MISAEL Infusion Ketorolac Tromethamine 15 mg 07/15/20 14:29 07/15/20 15:47 Ketorolac 15 Mg/Ml Vial (*Bkc) IV PUSH 07/16/20 14:30 15 mg Q6H PRN A
[2020-07-16] MEDS: LORATADINE 10 MG TABLET PO (08:03)
[2020-07-16] MEDS: PANTOPRAZOLE 40 MG TABLET PO (08:04)
[2020-07-16] MEDS: DOCUSATE SODIUM 100 MG CAPSULE PO (08:04)
[2020-07-16] MEDS: KETOROLAC 15 MG/ML VIAL (*BKC) IV PUSH ×2 (08:06→14:17)
--- NOTE | 2020-07-16 10:05 | WPDANESPN ---
Anes - Prog Note Post-Op Date/Time: 07/16/20 10:05 Cardiovascular status: normal Respiratory status: normal Airway patency: baseline Mental status: baseline Post-Op hydration status: normal Vital Signs: Last Vital Signs Temp 36.4 C L 07/16/20 03:57 Pulse 86 07/16/20 04:00 Resp 16 07/16/20 03:57 BP 119/64 07/16/20 08:08 Pulse Ox 97 07/16/20 03:57 Pain Score (VAS): 0 I/O: Intake & Output 07/15/20 07/16/20 07/16/20 23:59 07:59 15:59 Intake Total 1710 1600 480 Output Total 175 900 Balance 1535 700 480 Laboratory Tests 07/16/20 05:17 07/16/20 05:17 07/15/20 07/15/20 07/15/20 13:08 14:59 17:49 Hgb Hct Sodium Potassium Chloride Carbon Dioxide Anion Gap BUN Creatinine Estim Creat Clear Calc Estimated GFR Glucose POC Capillary Glucose 169 H Calcium Troponin I < 0.012 < 0.012 07/15/20 07/16/20 07/16/20 20:35 05:17 05:17 Hgb 11.5 L D Hct 33.9 L Sodium 134 L Potassium 3.9 Chloride 103 Carbon Dioxide 27 Anion Gap 4 L BUN 18 Creatinine 1.30 Estim Creat Clear Calc 61 Estimated GFR 55 L Glucose 130 H POC Capillary Glucose Calcium 8.0 L Troponin I < 0.012 Post-procedural complaints: none Patient Feedback: Patient satisfied with anesthetic care.
[2020-07-16] MEDS: ATORVASTATIN 40 MG TABLET PO (10:25)
--- NOTE | 2020-07-16 10:39 | PM.PNGS ---
Progress Note: A&P Assessment and Plan (1) Right inguinal hernia: Code(s): K40.90 - Unilateral inguinal hernia, without obstruction or gangrene, not specified as recurrent Status: Chronic Assessment and Plan: Doing well after right inguinal hernia repair yesterday. Patient can go home when okay with Dr. Campoverde. Okay to wash incision with soap and water. Activity to coincide with recovery from robotic prostatectomy. I will see him in 2 weeks. (2) Prostate cancer: Code(s): C61 - Malignant neoplasm of prostate Status: Chronic Subjective Subjective Date/Time Seen: 07/16/20 10:39 Post Op day: 1 Patient reports: no new complaints, pain is less ( Minimal pain) and tolerating a regular diet Exam : Male General Exam: Yes hernia ( right inguinal incision healing well, minimal swelling.) Objective Data Vital Signs Vital Signs: Vital Signs - 24 hr 07/15/20 13:05 07/15/20 13:20 07/15/20 13:35 Temperature 36.5 C Pulse Rate 90 88 81 Respiratory Rate 14 14 10 L Blood Pressure 123/76 124/78 127/80 Pulse Oximetry 100 100 100 07/15/20 13:50 07/15/20 14:05 07/15/20 14:20 Temperature Pulse Rate 86 87 90 Respiratory Rate 10 L 12 18 Blood Pressure 122/77 126/81 135/77 Pulse Oximetry 98 100 98 07/15/20 14:35 07/15/20 14:50 07/15/20 15:20 Temperature 36.2 C L 36.3 C L 36.2 C L Pulse Rate 92 89 89 Respiratory Rate 18 18 18 Blood Pressure 133/79 124/76 126/72 Pulse Oximetry 100 100 95 07/15/20 16:20 07/15/20 16:30 07/15/20 18:00 Temperature 36.5 C 37.1 C Pulse Rate 101 H 106 H 98 Respiratory Rate 16 18 Blood Pressure 127/77 107/61 Pulse Oximetry 94 96 07/15/20 20:00 07/15/20 20:14 07/15/20 22:53 Temperature 36.9 C Pulse Rate 99 99 78 Respiratory Rate 16 16 Blood Pressure 111/62 Pulse Oximetry 95 95 96 07/15/20 23:58 07/16/20 00:00 07/16/20 00:06 Temperature 36.5 C Pulse Rate 94 100 Respiratory Rate 18 Blood Pressure 97/57 L 98/62 L Pulse Oximetry 98 07/16/20 03:57 07/16/20 04:00 07/16/20 08:00 Temperature 36.4 C L Pulse Rate 87 86 91 Respiratory Rate 16 Blood Pressure 117/59 L Pulse Oximetry 97 07/16/20 08:08 07/16/20 10:00 Temperature 36.7 C Pulse Rate 89 Respiratory Rate 20 Blood Pressure 119/64 123/66 Pulse Oximetry 100 Intake/Output Intake/Output: Intake & Output 07/13/20 07/14/20 07/15/20 07/16/20 23:59 23:59 23:59 23:59 Intake Total 2210 2080 Output Total 205 900 Balance 2004 1180 Meds/Results Medications: Active Medications Generic Name Dose Route Start Last Admin Trade Name Freq PRN Reason Stop Dose Admin Atorvastatin Calcium 40 mg 07/15/20 14:50 07/16/20 10:25 Atorvastatin 40 Mg Tablet PO 40 mg QAM MISAEL Administration Docusate Sodium 100 mg 07/15/20 17:00 07/16/20 08:04 Docusate Sodium 100 Mg Capsule PO 100 mg BID MISAEL Administration Famotidine 20 mg 07/15/20 14:29 Famotidine 20 Mg Tablet PO PRN PRN Gastric Reflux Hyoscyamine 0.125 mg 07/15/20 14:29 07/16/20 04:12 Hyoscyamine Sulfate 0.125 Mg Tablet SUBLINGUAL 0.125 mg Q4H PRN Administration Bladder Spasm Lactated Ringer's 1,000 mls @ 125 mls/hr 07/15/20 14:29 07/16/20 01:00 Lr - Lactated Ringers Iv IV CONT 125 mls/hr .Q8H MISAEL Administration Acetaminophen 1,000 mg in 100 mls @ 400 mls/hr 07/15/20 16:00 07/16/20 10:25 Ofirmev 1,000 Mg Ivpb IVPB 07/16/20 16:01 400 mls/hr Q6H MISAEL Administration Ketorolac Tromethamine 15 mg 07/15/20 14:29 07/16/20 08:06 Ketorolac 15 Mg/Ml Vial (*Bkc) IV PUSH 07/16/20 14:30 15 mg Q6H PRN Administration Pain Rated 4-6 Levofloxacin 500 mg 07/16/20 09:00 07/16/20 08:03 Levofloxacin Tab 500 Mg Tablet PO 500 mg DAILY MISAEL Administration Lisinopril 20 mg 07/15/20 14:50 07/16/20 08:08 Lisinopril 20 Mg Tablet PO Not Given QAM MISAEL Loratadine 10 mg 07/16/20 09:00 07/16/20 08:03 Loratadin
--- NOTE | 2020-07-16 12:03 | PM.IMPN ---
Progress Note: A&P Assessment and Plan (1) H/O right inguinal hernia repair: Code(s): Z98.890 - Other specified postprocedural states; Z87.19 - Personal history of other diseases of the digestive system Status: Acute Assessment and Plan: Postop care per Dr. fitch. The patient has MARNIE and SCDs on for DVT prophylaxis. Permanent jones draining clear yellow urine (2) H/O prostatectomy: Code(s): Z90.79 - Acquired absence of other genital organ(s) Status: Acute Assessment and Plan: Postop care per Dr. ago. Pain management per surgical team. DVT prophylaxis per surgery. (3) JENNIFER (obstructive sleep apnea): Code(s): G47.33 - Obstructive sleep apnea (adult) (pediatric) Status: Chronic Assessment and Plan: Continue with home CPAP (4) Anxiety: Code(s): F41.9 - Anxiety disorder, unspecified Status: Chronic Assessment and Plan: Patient is on lorazepam and that has been continued. (5) HTN (hypertension): Qualifiers: Hypertension type: essential hypertension Qualified Code(s): I10 - Essential (primary) hypertension Code(s): I10 - Essential (primary) hypertension Status: Chronic Assessment and Plan: Blood pressure in normal range 123/66 Lisinopril on board, but patient called PCP and had that DC'd Trend Blood pressure Educated about fluid and sodium control to maintain blood pressure. (6) High cholesterol: Code(s): E78.00 - Pure hypercholesterolemia, unspecified Status: Chronic Assessment and Plan: Continue atorvastatin Subjective Date/time seen: 07/16/20 12:03 Patient is a 64-year-old male with a history of hyperlipidemia diabetes with and prostate cancer who was scheduled for a prostatectomy and hernia repair on 07/15/2020. Today patient reports feeling better was concerned about his blood pressure which overnight he stated was systolically 90s. Currently blood pressure is 123/66 patient did refuse his lisinopril and call primary care physician about his blood pressures which his primary did [place] office home med list. Did explain to patient and patient was having any issues with his blood pressure or chest pain or shortness of breath he is to call his PCP to re-evaluate his medications.Patient denies having any episodes of chest pain. Troponins were all negative and lab work is normal. Patient does have a surgical wound in the right groin area which looks good. He also mentioned that his scrotum is purple from the bleeding.Patient is very stable patient stated that he is tolerating a full meal, patient stated that he is having some pain however it is controlled. He also stated that he has not had a bowel movement since admission which he contributes to lack of intake. He also explained that he was on Colace and he is passing gas. Patient denies chest pain shortness of breath, diarrhea, nausea, vomiting, abdominal pain, urination issues, lightheadedness, dizziness, generalized weakness, fatigue, or numbness and tingling. Explained the patient that urology and surgery will discharge him. Patient verbalized understanding and agreed with plan of care. Review of Systems Review of Systems: All systems reviewed & are unremarkable except as noted in HPI and below Exam Const: General: cooperative, healthy appearing, comfortable, no acute distress, well developed, alert, awake and Physically active Nutritional Appearance: average body habitus and well nourished Orientation/consciousness: oriented to person, oriented to place, oriented to time and patient oriented x3 Limitations: no limitations HENMT: Head: normal to inspection, No palpable skull fracture present, normocephalic, atraumatic and abrasion Ears: hearing grossly normal bilaterally and external ears normal General nose exam: Normal external nose present and Normal nares
--- NOTE | 2020-07-16 12:59 | PM.DS ---
DS: Admitting Diagnosis Admitting Diagnosis Admitting Diagnosis: Prostate cancer Right inguinal hernia DS: Discharge Diagnosis Discharge Diagnosis (1) Anxiety: Code(s): F41.9 - Anxiety disorder, unspecified Status: Chronic (2) Right inguinal hernia: Code(s): K40.90 - Unilateral inguinal hernia, without obstruction or gangrene, not specified as recurrent Status: Chronic (3) Prostate cancer: Code(s): C61 - Malignant neoplasm of prostate Status: Chronic DS: Summary Hospital Course Hospital Course: This patient was admitted on the morning of his planned robotic prostatectomy and right inguinal herniography. These procedures was uneventful, as was his postoperative course. By the evening of the procedure he was sitting at the bedside in tolerating a liquid diet. The following morning he was ambulating freely and tolerating regular food. His catheter drainage remained essentially clear throughout. His postoperative hemoglobin and serum creatinine were unremarkable. Immediately post-op he had transient atypical chest pressure with unremarkable EKG and troponins. At the time of discharge he has been instructed in appropriate care for his Parks catheter with both a leg bag and bedside bag. He will be discharged with plans to follow-up in 1 week with a cystogram. Time Spent with Patient Time attestation: Total time spent providing and/or coordinating discharge services: Exam Const: General: no acute distress Resp: Effort & Inspection: normal respiratory effort GI: Inspection: non-distended GI Palp: No abdominal tenderness and No Guarding due to palpation present (GI) Auscultation: normal bowel sounds : Scrotum: ecchymosis DS: Data Data Completed and Pending Pending studies at discharge: Pending at discharge 07/15/20 10:06 Surgical [PTH] Routine Labs on day of discharge: Labs from last 24 hours 07/16/20 07/16/20 07/15/20 05:17 05:17 20:35 Hgb 11.5 L D Hct 33.9 L Sodium 134 L Potassium 3.9 Chloride 103 Carbon Dioxide 27 Anion Gap 4 L BUN 18 Creatinine 1.30 Estim Creat Clear Calc 61 Estimated GFR 55 L Glucose 130 H POC Capillary Glucose Calcium 8.0 L Troponin I < 0.012 07/15/20 07/15/20 07/15/20 17:49 14:59 13:08 Hgb Hct Sodium Potassium Chloride Carbon Dioxide Anion Gap BUN Creatinine Estim Creat Clear Calc Estimated GFR Glucose POC Capillary Glucose 169 H Calcium Troponin I < 0.012 < 0.012 Discharge Plan Discharge Patient Disposition: Home, Self-Care Discharge Instructions: 1) Parks catheter -> leg bag / bedside bag at night. 2) No lifting/straining >15lbs. x3 weeks. 3) No driving x1-week. 4) Resume normal, pre-operative diet. 5) My office will contact regarding follow-up in 1-week with cystogram. 6) Okay to wash right inguinal incision with soap and water daily and p.r.n.. Stand Alone Forms: General Discharge Instructions Follow-up/Referrals: Milo Robert MD [Physician] - 2 Weeks Discharge Orders: Discharge Order (Routine); Ordered 07/16/20 Ordered By: Mingo Campoverde Discharge Medications: New ciprofloxacin HCl 500 mg tablet 500 mg PO Q12H Qty: 10 RF: 0 docusate sodium [Colace] 100 mg capsule 100 mg PO DAILY Qty: 30 RF: 0 hydrocodone-acetaminophen 5-325 mg tablet 1 - 2 tablet PO Q6H PRN (Reason: pain) Qty: 20 RF: 0 hyoscyamine sulfate 0.125 mg tablet 0.125 mg PO Q6H PRN (Reason: bladder spasms) Qty: 20 RF: 2 Continued tadalafil [Cialis] 5 mg tablet 5 mg PO DAILY RF: 0 famotidine [Pepcid] 20 mg tablet 20 mg PO PRN PRN (Reason: Gastric Reflux) RF: 0 lisinopril 20 mg tablet 20 mg PO QAM RF: 0 pantoprazole 20 mg tablet,delayed release (DR/EC) 40 mg PO QAM RF: 0 Zyrtec 10 mg capsule 10 mg PO DAILY RF: 0 multivitamin [Daily Multi-Vitamin] Tablet
== END 2020-07-16 15:10 | disposition home or self-care (01) ==
LOC: ANHSURGERY 13:30 → ANH2MED 14:42
PROVIDERS: Surgery; PCP Family Medicine Adolescent Medicine; Visit Provider Urology
PROC: 0VT04ZZ Resection of Prostate, Percutaneous Endoscopic Approach (ICD-10-PCS; CPT 55867; principal; 2020-07-15 07:30)
PROC: (CPT 49525; 2020-07-15 07:30)
DX: C61 Malignant neoplasm of prostate (principal); K40.90 Unilateral inguinal hernia, without obstruction or gangrene, not specified as recurrent; R07.9 Chest pain, unspecified; I10 Essential (primary) hypertension; E78.00 Pure hypercholesterolemia, unspecified; K21.9 Gastro-esophageal reflux disease without esophagitis; G47.33 Obstructive sleep apnea (adult) (pediatric); E66.9 Obesity, unspecified; Z68.38 Body mass index [BMI] 38.0-38.9, adult; F41.9 Anxiety disorder, unspecified
CPT/HCPCS: 55866; 38571; 49525; S2900; 36415; 80048; 82948; 84484; 85014; 85018; 88305; 88307; 88309; 93005; A9270; C1781; C9290; J0131; J0330; J0690; J1100; J1170; J1885; J2250; J2405; J2704; J2710; J3010; J7030; J7120; Q9968

== ENCOUNTER 2020-07-23 11:12 | Outpatient (CLI) | payer MEDICARE, SELFPAY ==
--- NOTE | ~2020-07-23 | XR_ITS ---
EXAMINATION: XR cystogram DATE: 07/23/2020 11:43 INDICATION: Prostate cancer status post prostatectomy. TECHNIQUE: Water-soluble contrast was gravity-infused through the patient's Parks catheter. Multiple fluoroscopic images were obtained. Fluoroscopy exposure time was 0.3 minutes. The total number of sam ges was 7. COMPARISON: None. FINDINGS: There is extrinsic mass effect on the bladder, likely from pelvic swelling. There is no ext raluminal leakage of contrast. IMPRESSION: 1. No extraluminal leakage of contrast. Reviewed, dictated and finalized at location A.
== END 2020-07-23 11:13 | disposition home or self-care (01) ==
LOC: ANHIMG 11:13
PROVIDERS: PCP Family Medicine Adolescent Medicine; Visit Provider Urology
DX: C61 Malignant neoplasm of prostate (principal)
CPT/HCPCS: 51600; 74430; Q9967

== ENCOUNTER 2020-11-16 02:02 | Day surgery (SDC) | payer MEDICARE, SELFPAY ==
[2020-11-04 12:16] VITALS: BMI 40.2
--- NOTE | 2020-11-16 09:38 | WPDGICN ---
Assessment and Plan Assessment and plan (1) History of colon polyps: Code(s): Z86.010 - Personal history of colonic polyps Status: Acute Assessment and Plan: Patient has a history of colon polyps. Most recently colonoscopy was 2013. Plan is for surveillance colonoscopy at this time. Further recommendations will be given after endoscopy. (2) BMI 39.0-39.9,adult: Code(s): Z68.39 - Body mass index [BMI] 39.0-39.9, adult Status: Chronic Assessment and Plan: Weight loss diet control is strongly encouraged. GI Consult Note Consult date/time: 11/16/20 09:38 HPI: William Jimenez is a 64 year old male Presents for surveillance colonoscopy. Patient has a prior history of colon polyps. Most recently [address] Lomax. He had had adenomas previously in 2007 as well. He presents today for follow-up colonoscopy. His current weight appetite and bowel movements are normal. He denies abdominal pain. He has had no bleeding. Patient's recent history is significant for prostatectomy earlier this year as well as a hernia repair. Review of Systems Review of Systems: All systems reviewed & are unremarkable except as noted in HPI and below PMFSH Past Medical History Medical History Anxiety GERD (gastroesophageal reflux disease) High cholesterol History of diabetes mellitus History of prostate cancer HTN (hypertension) JENNIFER (obstructive sleep apnea) Walker as ambulation aid Surgical History Surgical History H/O prostatectomy H/O right inguinal hernia repair 07/15/20 Repair sliding right inguinal hernia History of bilateral knee replacement History of surgery on arm both wrist Family History Family History Father Colon cancer Hypertension Mother Hypertension Blind Other Hypertension Social History Social History Social History: The patient is . Is a retired pharmacist. The patient's daughter is the durable power estate planning attorney for healthcare. The patient desires to be a full code. The patient stated he used to drink alcohol in his middle a just but no longer drinks any alcohol. He is lifelong non smoker. No alcohol or illicit drugs. He only has the 1 daughter. Alcohol intake: never Drinks per week: 4 Substance use: never Living arrangements: alone Additional occupation/education comments: Pharmacist Gender identity (if verbalized by the patient): Male Spiritual care concerns: No Meds Home Medications and Allergies Home Medications Medication Instructions Recorded Confirmed Type cetirizine 10 mg capsule 10 mg PO DAILY 05/07/20 11/04/20 History famotidine 20 mg tablet 20 mg PO PRN PRN 05/07/20 11/04/20 History lorazepam 2 mg tablet 1 mg PO BID PRN 05/07/20 11/04/20 History pantoprazole 20 mg tablet,delayed 40 mg PO QAM 05/07/20 11/04/20 History release tadalafil 5 mg tablet 5 mg PO DAILY 05/27/20 11/04/20 History atorvastatin 40 mg PO QAM 06/30/20 11/04/20 History Allergies Allergy/AdvReac Type Severity Reaction Status Date / Time No Known Allergies Allergy Verified 11/16/20 09:38 Exam Narrative: Physical exam reveals patient to be alert. Vital signs stable. HEENT exam is unremarkable. Patient is anicteric. Lungs are clear to auscultation and percussion. Heart is without murmur or extra sounds. Abdominal exam bowel sounds are present soft nontender with no hepatosplenomegaly. Digital external rectal exam is normal.
[2020-11-16 09:41] VITALS: BP 148/85; PULSE 98; RESP 18; TEMP 37.1; O2SAT 98; BMI 39.9
[2020-11-16] MEDS: LACTATED RINGERS 1,000 ML 150 ML IV CONT (09:50)
--- NOTE | 2020-11-16 10:07 | WPDANESEPPF ---
Anes - Initial Pre Proc Eval Procedure: Operation Date: 11/16/20 11:00 Proposed Procedures p Screening Colonoscopy - Jg Acosta MD Date/Time: 11/16/20 10:07 Surgeon: Jg Acosta MD Pre Op Diagnosis: hx of colon polyps Patient Data Age: 64 Gender: M Height: 1.73 m Weight: 119 kg Last Vital Signs Temp 98.7 F 11/16/20 09:41 Pulse 98 11/16/20 09:41 Resp 18 11/16/20 09:41 BP 148/85 H 11/16/20 09:41 Pulse Ox 98 11/16/20 09:41 Allergies Allergy/AdvReac Type Severity Reaction Status Date / Time No Known Allergies Allergy Verified 11/16/20 09:38 Home Medications Medication Instructions Recorded Confirmed Type cetirizine 10 mg capsule 10 mg PO DAILY 05/07/20 11/04/20 History famotidine 20 mg tablet 20 mg PO PRN PRN 05/07/20 11/04/20 History lorazepam 2 mg tablet 1 mg PO BID PRN 05/07/20 11/04/20 History pantoprazole 20 mg tablet,delayed 40 mg PO QAM 05/07/20 11/04/20 History release tadalafil 5 mg tablet 5 mg PO DAILY 05/27/20 11/04/20 History atorvastatin 40 mg PO QAM 06/30/20 11/04/20 History Patient hx anesthesia problems: none Family hx anesthesia problems: none PMFSH Past Medical History Medical History Anxiety GERD (gastroesophageal reflux disease) High cholesterol History of diabetes mellitus History of prostate cancer HTN (hypertension) JENNIFER (obstructive sleep apnea) Walker as ambulation aid Surgical History Surgical History H/O prostatectomy H/O right inguinal hernia repair 07/15/20 Repair sliding right inguinal hernia History of bilateral knee replacement History of surgery on arm both wrist Family History Family History Father Colon cancer Hypertension Mother Hypertension Blind Other Hypertension Social History Social History Social History: The patient is . Is a retired pharmacist. The patient's daughter is the durable power civil litigation attorney for healthcare. The patient desires to be a full code. The patient stated he used to drink alcohol in his middle a just but no longer drinks any alcohol. He is lifelong non smoker. No alcohol or illicit drugs. He only has the 1 daughter. Alcohol intake: never Drinks per week: 4 Substance use: never Living arrangements: alone Additional occupation/education comments: Pharmacist Gender identity (if verbalized by the patient): Male Spiritual care concerns: No Anes - Eval Final PreProcedure Day of Procedure 11/16/20 10:07 Patient weight: morbidly obese Heart: regular rate and rhythm Lungs: clear to auscultation Airway: Mallampati scale class III Neurological: alert and oriented Last oral intake: >/= 8 hours ASA classification: III Emergent: no Anesthetic plan: proceed Anesthesia type and monitoring: general GIVS and standard monitoring Informed Consent: The patient's anesthetic plan and its attendant risks and benefits were discussed with the patient/family/POA. Questions were solicited and answers provided to the satisfaction of the patient/family/POA.
[2020-11-16 11:35] VITALS: BP 96/63; PULSE 64; RESP 28; O2SAT 95
[2020-11-16 11:45] VITALS: BP 121/79; PULSE 79; RESP 17; O2SAT 95
[2020-11-16 11:55] VITALS: BP 122/85; PULSE 72; RESP 14; O2SAT 97
== END 2020-11-16 12:09 | disposition home or self-care (01) ==
PROVIDERS: PCP Family Medicine Adolescent Medicine; Visit Provider Internal Medicine Gastroenterology
PROC: 0DJD8ZZ Inspection of Lower Intestinal Tract, Via Natural or Artificial Opening Endoscopic (ICD-10-PCS; CPT 45378; principal; 2020-11-16 11:00)
DX: Z12.11 Encounter for screening for malignant neoplasm of colon (principal); D12.2 Benign neoplasm of ascending colon; D12.4 Benign neoplasm of descending colon; K64.8 Other hemorrhoids; I10 Essential (primary) hypertension; E78.00 Pure hypercholesterolemia, unspecified; K21.9 Gastro-esophageal reflux disease without esophagitis; G47.33 Obstructive sleep apnea (adult) (pediatric); Z85.46 Personal history of malignant neoplasm of prostate; F41.9 Anxiety disorder, unspecified; E66.01 Morbid (severe) obesity due to excess calories; Z68.39 Body mass index [BMI] 39.0-39.9, adult
CPT/HCPCS: 45385; 88305; J2001; J2704; J7120

== ENCOUNTER 2020-11-18 17:41 | Inpatient (IN) | payer MEDICARE, SELFPAY ==
--- NOTE | ~2020-11-18 | NM_ITS ---
EXAMINATION: NM GI bleeding DATE: 11/18/2020 21:50 INDICATION: Gastrointestinal bleed 2 days post colonoscopy with polypectomy at 2 locations. TECHNIQUE: An 0.9 mCi Tc 99m in vitro labeled red cells administered intravenously. Scintigraphic im ages of the abdomen were obtained through 1 hour. FINDINGS/IMPRESSION: Single focus of active gastrointestinal bleed in the right lower quadrant which would be consistent with bleeding from a polyp reportedly resected from the proximal ascending colon. Reviewed, dictated and finalized at location A.
[2020-11-18 17:44] VITALS: BP 180/92; PULSE 89; RESP 18; TEMP 36.6; O2SAT 98
[2020-11-18 17:48] VITALS: BP 147/83; PULSE 83; RESP 17; TEMP 36.6; O2SAT 98
[2020-11-18 18:01] LABS: Basophils Absolute Auto 0.1 K/mm3 (0.0-0.1); Eosinophils Absolute Auto 0.3 K/mm3 (0-0.3); Eosinophils Percent Auto 4.7 % (0-4.4); Hematocrit 45.8 % (42.0-52.0); Hemoglobin 15.5 g/dL (14.0-18.0); Immature Granulocyte Absolute 0.02 K/mm3 (0.00-0.031); Immature Granulocyte Percent A 0.3 % (0-0.5); Lymphocytes Absolute Auto 2.75 K/mm3 (0.9-3.2); Lymphocytes Percent Auto 38.2 % (18.3-44.2); Mean Corpuscular HGB Conc 33.8 g/dl (32-36); Mean Corpuscular Hemoglobin 29.6 pg (26-34); Mean Corpuscular Volume 87.6 fl (80-100); Mean Platelet Volume 9.3 fl (7.4-10.4); Monocytes Absolute Auto 0.8 K/mm3 (0.1-0.6); Monocytes Percent Auto 11.1 % (2.6-8.5); Neutrophils Absolute Auto 3.2 K/mm3 (1.3-6.7); Neutrophils Percent Auto 44.7 % (45.5-73.1); Platelet Count Result 218 k/mm3 (150-375); Red Blood Count 5.23 M/mm3 (4.6-6.20); Red Cell Distribution Width 13.4 % (11.5-14.5); White Blood Count 7.2 K/mm3 (4.5-10.0)
[2020-11-18 18:15] LABS: Partial Thromboplastin Time 26.5 SECONDS (22.3-36.8); Prothrombin Time 12.8 Seconds (11.1-14.7)
[2020-11-18 18:59] LABS: Alanine Aminotransferase 26 U/L (4-50); Albumin Level 4.4 g/dL (3.5-5.1); Alkaline Phosphatase 65 U/L (38-126); Anion Gap 11 mmol/L (8-16); Aspartate Amino Transferase 20 U/L (17-59); Bilirubin,Total 0.3 mg/dL (0.2-1.3); Blood Urea Nitrogen 20 mg/dL (9-20); Calcium 8.5 mg/dL (8.4-10.2); Carbon Dioxide 26 mmol/L (22-30); Chloride 104 mmol/L (98-107); Estimated CRCL calculation 58 ml/min; Estimated Glomerular Filt Rate 51; Glucose 128 mg/dL (65-110); Sodium 141 mmol/L (137-145)
--- NOTE | 2020-11-18 19:24 | ED.GENADULT ---
HPI - General Adult General Chief complaint: GI Bleed <Mattie Redmond PA-C - Last Filed: 11/18/20 19:27> Stated complaint: BLOOD IN STOOL <Mattie Redmond PA-C - Last Filed: 11/18/20 19:27> Time Seen by Provider: 11/18/20 18:08 <Mattie Redmond PA-C - Last Filed: 11/18/20 19:27> Source: patient <Mattie Redmond PA-C - Last Filed: 11/18/20 19:27> Mode of arrival: ambulatory <DAVID Shelton Last Filed: 11/18/20 19:27> Limitations: no limitations <Mattie Redmond PA-C - Last Filed: 11/18/20 19:27> History of Present Illness HPI narrative: Patient presents with chief complaint of 2 large bright red stools that began yesterday and also occurred today. Patient states that he had a colonoscopy and polypectomy performed by Dr. Lopez on Sunday. He states that he has noted some mild cramping to his abdomen. He also reports a few episodes of vomiting a few days ago but denies any vomiting once a day. Patient denies fever, chills, nausea, weakness, chest pain or shortness of breath. <Mattie Redmond PA-C - Last Filed: 11/18/20 19:27> Related Data Home medications: Home Medications Medication Instructions Recorded Confirmed cetirizine 10 mg capsule 10 mg PO DAILY 05/07/20 11/04/20 famotidine 20 mg tablet 20 mg PO PRN PRN 05/07/20 11/04/20 lorazepam 2 mg tablet 1 mg PO BID PRN 05/07/20 11/04/20 pantoprazole 20 mg tablet,delayed 40 mg PO QAM 05/07/20 11/04/20 release tadalafil 5 mg tablet 5 mg PO DAILY 05/27/20 11/04/20 atorvastatin 40 mg PO QAM 06/30/20 11/04/20 <DAVID Shelton Last Filed: 11/18/20 19:27> Allergies/adverse reactions: Allergies Allergy/AdvReac Type Severity Reaction Status Date / Time No Known Allergies Allergy Verified 11/18/20 18:09 <Mattie Redmond PA-C - Last Filed: 11/18/20 19:27> Review of Systems Review of Systems: CONSTITUTIONAL: Denies fever, chills, or sweats. EYES: Denies visual changes, redness, or discharge. ENT: Denies rhinorrhea, congestion, sore throat, or otalgia. CARDIOVASCULAR: Denies chest pain, palpitations, or edema. RESPIRATORY: Denies cough or dyspnea. GASTROINTESTINAL: Reports bloody stool denies abdominal pain, nausea, vomiting, or diarrhea. GENITOURINARY: denies dysuria or hematuria. SKIN: Denies rash or itching. MUSCULOSKELETAL: Denies back pain, joint pain, or myalgia. NEUROLOGIC: Denies headache, numbness, dizziness, or weakness. PSYCHIATRIC: Denies anxiety or depression. <Mattie Redmond PA-C - Last Filed: 11/18/20 19:27> [facility] Past Medical History Medical History: Medical History Anxiety GERD (gastroesophageal reflux disease) High cholesterol History of diabetes mellitus History of prostate cancer HTN (hypertension) JENNIFER (obstructive sleep apnea) Walker as ambulation aid <DAVID Shelton Last Filed: 11/18/20 19:27> Surgical History Surgical History: Surgical History H/O prostatectomy H/O right inguinal hernia repair 07/15/20 Repair sliding right inguinal hernia History of bilateral knee replacement History of surgery on arm both wrist <Mattie Redmond PA-C - Last Filed: 11/18/20 19:27> Family History Family History: Family History Father Colon cancer Hypertension Mother Hypertension Blind Other Hypertension <Mattie Redmond PA-C - Last Filed: 11/18/20 19:27> Social History Social History: Social History Social History: The patient is . Is a retired pharmacist. The patient's daughter is the durable power trade mark attorney for healthcare. The patient desires to be a full code. The patient stated he used to drink alcohol in his middle a just but no longer drinks any alcohol. He is lifelong non smoker. No alcohol or illic
[2020-11-18 22:14] VITALS: BP 130/89; PULSE 93; RESP 16; O2SAT 98
[2020-11-18 22:25] VITALS: BMI 39.4
[2020-11-18 22:27] VITALS: BP 144/83; PULSE 83; RESP 17; TEMP 36.6; O2SAT 98
--- NOTE | 2020-11-18 22:31 | ADMGEN ---
This patient, William Jimenez, was admitted to Medical Room 246-01. Patient/family oriented to hospital policies and general routines including ID bracelet, bed and alarms, visiting hours, pain management, procedures, bathroom and other care routines, personal items, smoking policy, room service/diet, and visiting hours. Information on how to activate the Rapid Response Team has been discussed. Patient/Family are encouraged to report perceived risks to care and to ask questions if they do not understand what they are told or what they should do.
[2020-11-18 22:38] VITALS: BP 118/71; BP 140/86
[2020-11-18 23:07] VITALS: PULSE 83; RESP 17; O2SAT 98
[2020-11-19] VITALS (11 sets, daily range): BP systolic 77–140; BP diastolic 40–82; PULSE 66–114; RESP 16–28; TEMP 36.3–36.6; O2SAT 95–100
--- NOTE | 2020-11-19 00:24 | PM.IMHP ---
H&P: HPI History of Present Illness Date/Time: 11/18/20 2500 this is a 64-year-old male patient who tells me that he had a colonoscopy this past Sunday which is 11/16/2020 and had a polypectomy x2 a small one and one medium. Endoscopy diagnosis was ascending colon polyp descending colon polyp and internal hemorrhoids. The patient stated he noticed a little bit of blood that day which was Sunday and was doing okay on Sunday until he ate some fish. The patient stated that he started vomiting Sunday night and had a bloody stool that night. The patient stated that today which is he has been having bright red bloody stools every hour. The patient stated that he thought he had eaten some bad fish. His H&H is 15.[address] kwon was notified from the emergency room. GI bleed scan was read as single focus active gastrointestinal bleed at the right lower quadrant which would be consistent with bleeding from a polyp reportedly resected from the proximal ascending colon. The patient states he has no discomfort except for the right lower quadrant where he recently had a hernia repair. The patient has no nausea or vomiting but has loose bloody stools. I also called the results of the nuclear med scan to Dr. kwon. The patient was tolerating a clear liquid diet well. Patient is being admitted to observation status on the date of service 11/18/2020. Chief Complaint: GI bleed Review of Systems Review of Systems: All systems reviewed & are unremarkable except as noted in HPI and below Constitutional: Constitutional: Reports as per HPI and Reports no additional constitutional complaints Eyes: Eyes: Reports as per HPI and Reports no additional eye complaints ENT: Reports system reviewed and no additional complaints, except as documented and Reports Normal hearing present Cardiovascular: Cardiovascular: Reports no additional cardiovascular complaints Respiratory: Respiratory: Reports no additional respiratory complaints and Reports no additional respiratory complaints Gastrointestinal: Gastrointestinal: Reports as per HPI and Reports no additional gastrointestinal complaints Musculoskeletal: Musculoskeletal: Reports no additional musculoskeletal complaints Integumentary/Breasts: Skin/Breast: Reports system reviewed and no additional complaints, except as docu and Reports as per HPI Neurologic: Reports system reviewed and no additional complaints, except as documented, Reports as per HPI and Reports Normal hearing present Psychiatric: Psychiatric: Reports no additional psychiatric complaints and Reports as per HPI Endocrine: Endocrine: Reports no additional endocrine complaints Hematologic/Lymphatic: Hematologic/Lymphatic: Reports no additional hematologic/lymphatic complaints Allergic/Immunologic: Allergic/Immunologic: Reports no additional allergic/immunologic complaints [facility] Past Medical History Medical History (Updated 11/19/20 @ 00:48 by Ella Rai NP) Anxiety Failing dental implant GERD (gastroesophageal reflux disease) High cholesterol History of diabetes mellitus Diet control last A1c 5.8 on 04/29/2020 History of prostate cancer HTN (hypertension) JENNIFER (obstructive sleep apnea) Walker as ambulation aid Surgical History Surgical History (Updated 11/19/20 @ 00:42 by Ella Rai NP) H/O colonoscopy with polypectomy H/O prostatectomy H/O right inguinal hernia repair 07/15/20 Repair sliding right inguinal hernia History of bilateral knee replacement History of surgery on arm both wrist Family History Family History Father Colon cancer Hypertension Mother Hypertension Blind Other Hypertension Social History Social History Social History: The patient is . Is a retired pharmacist. The patient's daughter is the durable power immigration attorney for healthcare. The patient hans
--- NOTE | 2020-11-19 01:17 | PC.NURSE ---
UHAT PLACED IN TOILET TO MEASURE STOOL OUTPUT
[2020-11-19 02:14] LABS: Hematocrit 39.7 % (42.0-52.0); Hemoglobin 13.7 g/dL (14.0-18.0)
[2020-11-19] MEDS: PEG (High)/E-LYTE SOLN 4,000 ML BTL 3000 ML PO (04:53)
--- NOTE | 2020-11-19 08:06 | PM.IMPN ---
Progress Note: A&P Assessment and Plan (1) Acute GI bleeding: Code(s): K92.2 - Gastrointestinal hemorrhage, unspecified Status: Inactive Assessment and Plan: Nuclear med GI bleed scan was read as Single focus of active gastrointestinal bleed in the right lower quadrant which would be consistent with bleeding from a polyp reportedly resected from the proximal ascending colon. (2) Anxiety: Code(s): F41.9 - Anxiety disorder, unspecified Status: Chronic Assessment and Plan: Continue with patient's lorazepam. (3) High cholesterol: Code(s): E78.00 - Pure hypercholesterolemia, unspecified Status: Chronic Assessment and Plan: Continue with atorvastatin (4) JENNIFER (obstructive sleep apnea): Code(s): G47.33 - Obstructive sleep apnea (adult) (pediatric) Status: Chronic Assessment and Plan: Patient's home setting are somewhere between 10 and 16 on the BiPAP. (5) History of diabetes mellitus: Code(s): Z86.39 - Personal history of other endocrine, nutritional and metabolic disease Status: Chronic Assessment and Plan: Patient stated his last hemoglobin A1c was 5.8 and that he controls his diet. Additional Plan Hematochezia - patient has photos with [facility] from home. Hgb 15 on admission, trending down to 13.7 today. Nuclear Med scan showing bleeding from site at which polyp recently resected in proximal ascending colon. GI has been consulted, plan cauterization later today, Q6 h&h, bowel rest, IV protonix 40 BID. SCD for dvt prophylaxis. Time Spent With Patient Time with patient: less than 15 minutes Subjective Date/time seen: 11/19/20 08:06 resting comfortably no acute complaints awaiting procudure later in the day Review of Systems Review of Systems: All systems reviewed & are unremarkable except as noted in HPI and below Exam Const: General: no acute distress Neck: Neck: no JVD Resp: Effort & Inspection: normal respiratory effort Auscultation: clear to auscultation bilaterally Cardio: Rate: regular rate Rhythm: regular rhythm GI: GI Palp: Yes Soft to palpation and No Tenderness to palpation present (GI) Objective Data Vital Signs Vital Signs: Vital Signs - 24 hr 11/18/20 17:44 11/18/20 17:48 11/18/20 22:14 Temperature 98 F 97.9 F Pulse Rate 89 83 93 Respiratory Rate 18 17 16 Blood Pressure 180/92 H 147/83 H 130/89 Pulse Oximetry 98 98 98 11/18/20 22:27 11/18/20 22:38 11/18/20 23:07 Temperature 97.9 F Pulse Rate 83 83 Respiratory Rate 17 17 Blood Pressure 144/83 H 118/71 Pulse Oximetry 98 98 11/19/20 02:05 11/19/20 02:10 11/19/20 03:51 Temperature 97.8 F Pulse Rate 89 88 Respiratory Rate 28 H 16 Blood Pressure 137/82 Pulse Oximetry 98 98 99 Intake/Output Intake/Output: Intake & Output 11/16/20 11/17/20 11/18/20 11/19/20 23:59 23:59 23:59 23:59 Intake Total 450 Output Total 500 Balance -50 Meds/Results Medications: Active Medications Generic Name Dose Route Start Last Admin Trade Name Freq PRN Reason Stop Dose Admin Atorvastatin Calcium 40 mg 11/19/20 09:00 Atorvastatin 40 Mg Tablet PO QAM MISAEL Loratadine 10 mg 11/19/20 09:00 Loratadine 10 Mg Tablet PO QAM MISAEL Lorazepam 1 mg 11/19/20 00:44 Lorazepam (*Crx) 1 Mg Tablet PO BID PRN Anxiety Pantoprazole Sodium 40 mg 11/19/20 09:00 Pantoprazole 40 Mg Tablet PO QAM [facility] Labs Labs: Laboratory Results - last 24 hr 11/18/20 11/18/20 11/18/20 17:51 17:51 17:51 WBC 7.2 RBC 5.23 Hgb 15.5 D Hct 45.8 MCV 87.6 MCH 29.6 MCHC 33.8 RDW 13.4 Plt Count 218 MPV 9.3 Immature Gran % (Auto) 0.3 Neut % (Auto) 44.7 L Lymph % (Auto) 38.2 Dyer % (Auto) 11.1 H Eos % (Auto) 4.7 H Baso % (Auto) 1.0 Lymph # (Auto) 2.75 Dyer # (Auto) 0.8 H Eos # (Auto) 0.3 Baso # (Auto) 0.1 Abs Immat Gran (auto) 0.02 A
[2020-11-19] MEDS: PANTOPRAZOLE SODIUM IV 40 MG VIAL IV PUSH (08:51)
[2020-11-19 08:53] LABS: Hematocrit 39.6 % (42.0-52.0); Hemoglobin 13.7 g/dL (14.0-18.0)
[2020-11-19 09:05] LABS: Alanine Aminotransferase 26 U/L (4-50); Albumin Level 4.3 g/dL (3.5-5.1); Alkaline Phosphatase 66 U/L (38-126); Anion Gap 14 mmol/L (8-16); Aspartate Amino Transferase 20 U/L (17-59); Bilirubin,Total 0.6 mg/dL (0.2-1.3); Blood Urea Nitrogen 21 mg/dL (9-20); Calcium 8.6 mg/dL (8.4-10.2); Carbon Dioxide 24 mmol/L (22-30); Chloride 105 mmol/L (98-107); Estimated CRCL calculation 62 ml/min; Estimated Glomerular Filt Rate 55; Glucose 126 mg/dL (65-110); Potassium 3.9 mmol/L (3.4-5.0); Sodium 143 mmol/L (137-145)
--- NOTE | 2020-11-19 09:59 | WPDGICN ---
Assessment and Plan Assessment and plan (1) History of colon polyps: Code(s): Z86.010 - Personal history of colonic polyps Status: Acute Assessment and Plan: Patient has a history of colon polyps most recently 2 days ago which time several polyps removed by snare cautery. (2) Acute GI bleeding: Code(s): K92.2 - Gastrointestinal hemorrhage, unspecified Status: Acute Assessment and Plan: Patient has had abrupt bleeding which began yesterday most consistent with post polypectomy bleeding. Plan is for colonoscopy and cautery of the base of this polyp site today after prep. GI Consult Note Consult date/time: 11/19/20 09:59 HPI: William Jimenez is a 64 year old male Admitted to the hospital with lower GI bleeding. Patient has had a history of colon polyps in the past. Underwent colonoscopy 2-3 days ago on 11/16/2020. At that time he had 2 colon polyps. A larger polyp in the ascending colon a diminutive polyp in the left colon. He did well until last evening when he began to pass bright red blood per rectum. For this reason he went to the emergency room and was admitted the hospital. Throughout the night has continued to have intermittent maroonish stools. He denies any significant abdominal pain. His family history is noncontributory. Review of Systems Review of Systems: All systems reviewed & are unremarkable except as noted in HPI and below PMFSH Past Medical History Medical History (Updated 11/19/20 @ 00:48 by Ella Rai NP) Anxiety Failing dental implant GERD (gastroesophageal reflux disease) High cholesterol History of diabetes mellitus Diet control last A1c 5.8 on 04/29/2020 History of prostate cancer HTN (hypertension) JENNIFER (obstructive sleep apnea) Walker as ambulation aid Surgical History Surgical History (Updated 11/19/20 @ 00:42 by Ella Rai NP) H/O colonoscopy with polypectomy H/O prostatectomy H/O right inguinal hernia repair 07/15/20 Repair sliding right inguinal hernia History of bilateral knee replacement History of surgery on arm both wrist Family History Family History Father Colon cancer Hypertension Mother Hypertension Blind Other Hypertension Social History Social History Social History: The patient is . Is a retired pharmacist. The patient's daughter is the durable power attorney recruiter for healthcare. The patient desires to be a full code. The patient stated he used to drink alcohol in his middle a just but no longer drinks any alcohol. He is lifelong non smoker. No alcohol or illicit drugs. He only has the 1 daughter. Smoking status: Never smoker Second hand tobacco smoke exposure: Yes Alcohol intake: never Drinks per week: 4 Substance use: never Substance use type: does not use Additional occupation/education comments: Pharmacist Gender identity (if verbalized by the patient): Male Spiritual care concerns: No Meds Home Medications and Allergies Home Medications Medication Instructions Recorded Confirmed Type cetirizine 10 mg capsule 10 mg PO DAILY 05/07/20 11/18/20 History famotidine 20 mg tablet 20 mg PO PRN PRN 05/07/20 11/18/20 History lorazepam 2 mg tablet 1 mg PO BID PRN 05/07/20 11/18/20 History pantoprazole 20 mg tablet,delayed 40 mg PO QAM 05/07/20 11/18/20 History release tadalafil 5 mg tablet 5 mg PO DAILY 05/27/20 11/18/20 History atorvastatin 40 mg PO QAM 06/30/20 11/18/20 History Allergies Allergy/AdvReac Type Severity Reaction Status Date / Time No Known Allergies Allergy Verified 11/18/20 23:53 Vital Signs Vital Signs - 24 hr 11/18/20 17:44 11/18/20 17:48 11/18/20 22:14 Temperature 98 F 97.9 F Pulse Rate 89 83 93 Respiratory Rate 18 17 16 Blood Pressure 180/92 H 147/83 H 130/89 Pulse Oximetry 98 98 98 11/18/20 22:27 11/18
--- NOTE | 2020-11-19 12:14 | PC.NURSE ---
Pt to GI lab per wheelchair.
--- NOTE | 2020-11-19 12:26 | WPDANESEPPF ---
Anes - Initial Pre Proc Eval Procedure: Operation Date: 11/19/20 14:00 Proposed Procedures p Colonoscopy - Jg Acosta MD Date/Time: 11/19/20 12:26 Surgeon: Gay Dow MD Pre Op Diagnosis: GI Bleeding Patient Data Age: 64 Gender: M Height: 1.73 m Weight: 117.5 kg Last Vital Signs Temp 97.8 F 11/19/20 03:51 Pulse 88 11/19/20 03:51 Resp 16 11/19/20 03:51 BP 137/82 11/19/20 03:51 Pulse Ox 99 11/19/20 03:51 Allergies Allergy/AdvReac Type Severity Reaction Status Date / Time No Known Allergies Allergy Verified 11/18/20 23:53 Home Medications Medication Instructions Recorded Confirmed Type cetirizine 10 mg capsule 10 mg PO DAILY 05/07/20 11/18/20 History famotidine 20 mg tablet 20 mg PO PRN PRN 05/07/20 11/18/20 History lorazepam 2 mg tablet 1 mg PO BID PRN 05/07/20 11/18/20 History pantoprazole 20 mg tablet,delayed 40 mg PO QAM 05/07/20 11/18/20 History release tadalafil 5 mg tablet 5 mg PO DAILY 05/27/20 11/18/20 History atorvastatin 40 mg PO QAM 06/30/20 11/18/20 History Laboratory Tests 11/18/20 11/18/20 11/18/20 17:51 17:51 17:51 WBC 7.2 K/mm3 K/mm3 (4.5-10.0) RBC 5.23 M/mm3 M/mm3 (4.6-6.20) Hgb 15.5 g/dL D g/dL (14.0-18.0) Hct 45.8 % % (42.0-52.0) MCV 87.6 fl fl (80-100) MCH 29.6 pg pg (26-34) MCHC 33.8 g/dl g/dl (32-36) RDW 13.4 % % (11.5-14.5) Plt Count 218 k/mm3 k/mm3 (150-375) MPV 9.3 fl fl (7.4-10.4) Immature Gran % (Auto) 0.3 % % (0-0.5) Neut % (Auto) 44.7 % L % (45.5-73.1) Lymph % (Auto) 38.2 % % (18.3-44.2) [place] % (Auto) 11.1 % H % (2.6-8.5) Eos % (Auto) 4.7 % H % (0-4.4) Baso % (Auto) 1.0 % % (0.2-1.2) Lymph # (Auto) 2.75 K/mm3 K/mm3 (0.9-3.2) [place] # (Auto) 0.8 K/mm3 H K/mm3 (0.1-0.6) Eos # (Auto) 0.3 K/mm3 K/mm3 (0-0.3) Baso # (Auto) 0.1 K/mm3 K/mm3 (0.0-0.1) Abs Immat Gran (auto) 0.02 K/mm3 K/mm3 (0.00-0.031) Absolute Neuts (auto) 3.2 K/mm3 K/mm3 (1.3-6.7) Absolute Nucleated RBC 0.0 K/mm3 K/mm3 (0.0-0.012) Nucleated RBC % 0.0 % % (0.0-0.2) PT 12.8 Seconds Seconds (11.1-14.7) INR 1.0 APTT 26.5 SECONDS SECONDS (22.3-36.8) Sodium Potassium Chloride Carbon Dioxide Anion Gap BUN Creatinine Estim Creat Clear Calc Estimated GFR Glucose Calcium Magnesium Total Bilirubin AST ALT Alkaline Phosphatase Total Protein Albumin TSH (Reflex) Blood Type A Positive Antibody Screen Negative 11/18/20 11/19/20 11/19/20 18:34 01:26 08:13 WBC RBC Hgb 13.7 g/dL L g/dL 13.7 g/dL L g/dL (14.0-18.0) (14.0-18.0) Hct 39.7 % L % 39.6 % L % (42.0-52.0) (42.0-52.0) MCV MCH MCHC RDW Plt Count MPV Immature Gran % (Auto) Neut % (Auto) Lymph % (Auto) [place] % (Auto) Eos % (Auto) Baso % (Auto) Lymph # (Auto) [place] # (Auto) Eos # (Auto) Baso # (Auto) Abs Immat Gran (auto) Absolute Neuts (auto) Absolute Nucleated RBC Nucleated RBC % PT INR APTT Sodium 141 mmol/L mmol/L (137-145) Potassium 4.0 mmol/L mmol/L (3.4-5.0) Chloride 104 mmol/L mmol/L (98-107) Carbon Dioxide 26 mmol/L mmol/L (22-30) Anion Gap 11 mmol/L mmol/L (8-16)
[2020-11-19] MEDS: LACTATED RINGERS 1,000 ML 150 ML IV CONT (12:40)
[2020-11-19] MEDS: SIMETHICONE ORAL SUSPENSION 20 MG/0.3 ML 30 ML BOTTLE 0.6 ML PO (13:22)
[2020-11-19] MEDS: ATORVASTATIN 40 MG TABLET PO (14:21)
[2020-11-19] MEDS: LORATADINE 10 MG TABLET PO (14:21)
--- NOTE | 2020-11-19 14:42 | PC.NURSE ---
Pt returned from GI lab [id number] 11/19/20.
[2020-11-19 15:00] LABS: Hematocrit 32.5 % (42.0-52.0)
[2020-11-19 19:49] LABS: Hematocrit 32.1 % (42.0-52.0); Hemoglobin 10.9 g/dL (14.0-18.0)
[2020-11-20 02:32] LABS: Hematocrit 28.9 % (42.0-52.0); Hemoglobin 9.8 g/dL (14.0-18.0)
[2020-11-20 03:00] VITALS: PULSE 81; RESP 16; O2SAT 97
[2020-11-20 05:47] LABS: Basophils Absolute Auto 0.1 K/mm3 (0.0-0.1); Basophils Percent Auto 0.8 % (0.2-1.2); Eosinophils Absolute Auto 0.3 K/mm3 (0-0.3); Eosinophils Percent Auto 3.5 % (0-4.4); Hematocrit 27.5 % (42.0-52.0); Hemoglobin 9.4 g/dL (14.0-18.0); Immature Granulocyte Absolute 0.01 K/mm3 (0.00-0.031); Immature Granulocyte Percent A 0.1 % (0-0.5); Lymphocytes Absolute Auto 2.08 K/mm3 (0.9-3.2); Mean Corpuscular HGB Conc 34.2 g/dl (32-36); Mean Corpuscular Hemoglobin 29.2 pg (26-34); Mean Corpuscular Volume 85.4 fl (80-100); Mean Platelet Volume 10.2 fl (7.4-10.4); Monocytes Absolute Auto 0.6 K/mm3 (0.1-0.6); Monocytes Percent Auto 8.2 % (2.6-8.5); Neutrophils Absolute Auto 4.2 K/mm3 (1.3-6.7); Neutrophils Percent Auto 58.4 % (45.5-73.1); Platelet Count Result 189 k/mm3 (150-375); Red Blood Count 3.22 M/mm3 (4.6-6.20); Red Cell Distribution Width 13.6 % (11.5-14.5); White Blood Count 7.2 K/mm3 (4.5-10.0)
[2020-11-20 05:59] LABS: Alanine Aminotransferase 19 U/L (4-50); Albumin Level 3.2 g/dL (3.5-5.1); Alkaline Phosphatase 49 U/L (38-126); Anion Gap 3 mmol/L (8-16); Aspartate Amino Transferase 16 U/L (17-59); Bilirubin,Total 0.5 mg/dL (0.2-1.3); Blood Urea Nitrogen 19 mg/dL (9-20); Calcium 7.9 mg/dL (8.4-10.2); Carbon Dioxide 29 mmol/L (22-30); Chloride 104 mmol/L (98-107); Estimated CRCL calculation 62 ml/min; Estimated Glomerular Filt Rate 55; Glucose 127 mg/dL (65-110); Magnesium 1.9 mg/dL (1.6-2.3); Phosphorus 3.8 mg/dL (2.5-4.5); Potassium 3.7 mmol/L (3.4-5.0); Sodium 136 mmol/L (137-145)
[2020-11-20 06:00] VITALS: BP 145/57; PULSE 85; RESP 21; TEMP 36.6; O2SAT 100
[2020-11-20] MEDS: LORATADINE 10 MG TABLET PO (08:09)
[2020-11-20] MEDS: ATORVASTATIN 40 MG TABLET PO (08:09)
--- NOTE | 2020-11-20 08:10 | PM.IMPN ---
Progress Note: A&P Assessment and Plan (1) Acute GI bleeding: Code(s): K92.2 - Gastrointestinal hemorrhage, unspecified Status: Inactive Assessment and Plan: Nuclear med GI bleed scan was read as Single focus of active gastrointestinal bleed in the right lower quadrant which would be consistent with bleeding from a polyp reportedly resected from the proximal ascending colon. (2) Anxiety: Code(s): F41.9 - Anxiety disorder, unspecified Status: Chronic Assessment and Plan: Continue with patient's lorazepam. (3) High cholesterol: Code(s): E78.00 - Pure hypercholesterolemia, unspecified Status: Chronic Assessment and Plan: Continue with atorvastatin (4) JENNIFER (obstructive sleep apnea): Code(s): G47.33 - Obstructive sleep apnea (adult) (pediatric) Status: Chronic Assessment and Plan: Patient's home setting are somewhere between 10 and 16 on the BiPAP. (5) History of diabetes mellitus: Code(s): Z86.39 - Personal history of other endocrine, nutritional and metabolic disease Status: Chronic Assessment and Plan: Patient stated his last hemoglobin A1c was 5.8 and that he controls his diet. Additional Plan Hematochezia - patient has photos with BRBPR from home. Hgb 15 on admission, trending down to 13.7, 9.4 this morning. Nuclear Med scan showing bleeding from site at which polyp recently resected in proximal ascending colon. GI took patient for colonoscopy, 2 clips placed at polypectomy site. Will obtain a hemoglobin this afteroon around 4-5pm to ensure no more overt bleeding. Plan discharge leter today or early tomorrow morning based on trend. SCD for dvt ppx. Simethicone. Appreciate any other GI recommendations. Time Spent With Patient Time with patient: less than 15 minutes Subjective Date/time seen: 11/20/20 08:10 no acute complaints feels fine subjectively 1 bloody stool since procedure Review of Systems Review of Systems: All systems reviewed & are unremarkable except as noted in HPI and below Exam Const: General: no acute distress Neck: Neck: no JVD Resp: Effort & Inspection: normal respiratory effort Auscultation: clear to auscultation bilaterally Cardio: Rate: regular rate Rhythm: regular rhythm GI: GI Palp: Yes Soft to palpation and No Tenderness to palpation present (GI) Objective Data Vital Signs Vital Signs: Vital Signs - 24 hr 11/19/20 12:37 11/19/20 13:33 11/19/20 13:43 Temperature 97.4 F L Pulse Rate 114 H 90 88 Respiratory Rate 18 18 19 Blood Pressure 114/82 77/40 L 82/49 L Pulse Oximetry 99 96 95 11/19/20 13:53 11/19/20 14:03 11/19/20 14:15 Temperature 97.5 F L Pulse Rate 107 H 97 98 Respiratory Rate 22 H 25 H 16 Blood Pressure 91/57 L 105/66 121/81 Pulse Oximetry 99 100 98 11/19/20 22:00 11/19/20 22:15 11/20/20 03:00 Temperature 97.8 F Pulse Rate 93 66 81 Respiratory Rate 20 19 16 Blood Pressure 140/79 Pulse Oximetry 99 96 97 11/20/20 06:00 Temperature 97.8 F Pulse Rate 85 Respiratory Rate 21 H Blood Pressure 145/57 H Pulse Oximetry 100 Intake/Output Intake/Output: Intake & Output 11/17/20 11/18/20 11/19/20 11/20/20 23:59 23:59 23:59 23:59 Intake Total 960 600 Output Total 500 Balance 460 600 Meds/Results Medications: Active Medications Generic Name Dose Route Start Last Admin Trade Name Freq PRN Reason Stop Dose Admin Atorvastatin Calcium 40 mg 11/19/20 09:00 11/20/20 08:09 Atorvastatin 40 Mg Tablet PO 40 mg QAM MISAEL Administration Dextrose 12.5 gm 11/19/20 08:05 Dextrose 50% 25 Gm/50 Ml Syringe IV PUSH PRN PRN Hypoglycemia Protocol Glucagon 1 mg 11/19/20 08:05 Glucagon For Inj 1 Mg Vial IM PRN PRN Hypoglycemia Protocol Glucose 15 gm 11/19/20 08:05 Glucose Oral Gel 15 Gm Of Glucse In 37.5 Gm Tube PO PRN PRN Hypoglycemia Protocol Dextrose 1,000 mls @ 100 mls
[2020-11-20 08:36] LABS: Hematocrit 28.8 % (42.0-52.0); Hemoglobin 9.9 g/dL (14.0-18.0)
[2020-11-20 13:55] LABS: Hematocrit 26.2 % (42.0-52.0); Hemoglobin 9.2 g/dL (14.0-18.0)
--- NOTE | 2020-11-20 16:46 | WPDGIPROGNO ---
Progress Note: A&P Additional Plan GI Odilia Acosta 20 Nov 2020 Small amount of BRBPR this am; none since. No AP, N, V. [place] po VSS soft/NT Hct 32-> 26 A/P Acute blood loss anemia with hematochezia: - Post-polypectomy bleed - S/p Clip x [address] Acosta - Bleeding has subsided - If stable consider for discharge in am - Care with aspirin, NSAIDS and anticoagulants x 2 weeks Thanks, JONATAN [phone] Subjective Date/time seen: 11/20/20 16:46 Objective Data Vital Signs Vital Signs: Vital Signs - 24 hr 11/19/20 22:00 11/19/20 22:15 11/20/20 03:00 Temperature 36.6 C Pulse Rate 93 66 81 Respiratory Rate 20 19 16 Blood Pressure 140/79 Pulse Oximetry 99 96 97 11/20/20 06:00 Temperature 36.6 C Pulse Rate 85 Respiratory Rate 21 H Blood Pressure 145/57 H Pulse Oximetry 100 Intake/Output Intake/Output: Intake & Output 11/17/20 11/18/20 11/19/20 11/20/20 23:59 23:59 23:59 23:59 Intake Total 960 1440 Output Total 500 Balance 460 1440 Meds/Results Medications: Active Medications Generic Name Dose Route Start Last Admin Trade Name Freq PRN Reason Stop Dose Admin Atorvastatin Calcium 40 mg 11/19/20 09:00 11/20/20 08:09 Atorvastatin 40 Mg Tablet PO 40 mg QAM MISAEL Administration Dextrose 12.5 gm 11/19/20 08:05 Dextrose 50% 25 Gm/50 Ml Syringe IV PUSH PRN PRN Hypoglycemia Protocol Glucagon 1 mg 11/19/20 08:05 Glucagon For Inj 1 Mg Vial IM PRN PRN Hypoglycemia Protocol Glucose 15 gm 11/19/20 08:05 Glucose Oral Gel 15 Gm Of Glucse In 37.5 Gm Tube PO PRN PRN Hypoglycemia Protocol Dextrose 1,000 mls @ 100 mls/hr 11/19/20 08:05 Dextrose 5% 1,000 Ml IVPB PRN PRN Hypoglycemia Protocol Loratadine 10 mg 11/19/20 09:00 11/20/20 08:09 Loratadine 10 Mg Tablet PO 10 mg QAM MISAEL Administration Lorazepam 1 mg 11/19/20 00:44 Lorazepam (*Crx) 1 Mg Tablet PO BID PRN Anxiety Pantoprazole Sodium 40 mg 11/21/20 09:00 Pantoprazole 40 Mg Tablet PO QAM MISAEL Simethicone 0.6 ml 11/19/20 13:22 11/19/20 13:22 Simethicone Oral Suspension 20 Mg/0.3 Ml 30 Ml Bottle PO 0.6 ml ONCE PRN Administration Gas Discomfort Labs Labs: Laboratory Results - last 24 hr 11/19/20 11/20/20 11/20/20 19:44 01:37 04:54 WBC 7.2 RBC 3.22 L Hgb 10.9 L 9.8 L 9.4 L Hct 32.1 L 28.9 L 27.5 L MCV 85.4 MCH 29.2 MCHC 34.2 RDW 13.6 Plt Count 189 MPV 10.2 Immature Gran % (Auto) 0.1 Neut % (Auto) 58.4 Lymph % (Auto) 29.0 [place] % (Auto) 8.2 Eos % (Auto) 3.5 Baso % (Auto) 0.8 Lymph # (Auto) 2.08 [place] # (Auto) 0.6 Eos # (Auto) 0.3 Baso # (Auto) 0.1 Abs Immat Gran (auto) 0.01 Absolute Neuts (auto) 4.2 Absolute Nucleated RBC 0.0 Nucleated RBC % 0.0 Sodium Potassium Chloride Carbon Dioxide Anion Gap BUN Creatinine Estim Creat Clear Calc Estimated GFR Glucose Calcium Phosphorus Magnesium Total Bilirubin AST ALT Alkaline Phosphatase Total Protein Albumin 11/20/20 11/20/20 11/20/20 04:54 08:09 13:42 WBC RBC Hgb 9.9 L 9.2 L Hct 28.8 L 26.2 L MCV MCH MCHC RDW Plt Count MPV Immature Gran % (Auto) Neut % (Auto) Lymph % (Auto) [place] % (Auto) Eos % (Auto) Baso % (Auto) Lymph # (Auto) [place] # (Auto) Eos # (Auto) Baso # (Auto) Abs Immat Gran (auto) Absolute Neuts (auto) Absolute Nucleated RBC Nucleated RBC % Sodium 136 L Potassium 3.7 Chloride 104 Carbon Dioxide 29 Anion Gap 3 L BUN 19 Creatinine 1.30 Estim Creat Clear Calc 62 Estimated GFR 55 L Glucose 127 H Calcium 7.9 L Phosphorus 3.8 Magnesium 1.9 Total Bilirubin 0.5 AST 16 L ALT 19 Alkaline Phosphatase 49 Total Protein 5.0 L Albumin 3.2 L
[2020-11-20 22:00] VITALS: BP 143/72; PULSE 99; RESP 18; TEMP 36.7; O2SAT 96
[2020-11-21 05:38] LABS: Alanine Aminotransferase 18 U/L (4-50); Albumin Level 3.1 g/dL (3.5-5.1); Alkaline Phosphatase 46 U/L (38-126); Anion Gap 3 mmol/L (8-16); Aspartate Amino Transferase 15 U/L (17-59); Bilirubin,Total 0.2 mg/dL (0.2-1.3); Blood Urea Nitrogen 17 mg/dL (9-20); Calcium 7.9 mg/dL (8.4-10.2); Carbon Dioxide 30 mmol/L (22-30); Chloride 106 mmol/L (98-107); Estimated CRCL calculation 67 ml/min; Estimated Glomerular Filt Rate > 60; Glucose 119 mg/dL (65-110); Magnesium 2.1 mg/dL (1.6-2.3); Phosphorus 4.4 mg/dL (2.5-4.5); Potassium 3.6 mmol/L (3.4-5.0); Sodium 139 mmol/L (137-145)
[2020-11-21 05:43] LABS: Basophils Absolute Auto 0.1 K/mm3 (0.0-0.1); Basophils Percent Auto 0.8 % (0.2-1.2); Eosinophils Absolute Auto 0.4 K/mm3 (0-0.3); Eosinophils Percent Auto 5.9 % (0-4.4); Hematocrit 24.8 % (42.0-52.0); Hemoglobin 8.5 g/dL (14.0-18.0); Immature Granulocyte Absolute 0.02 K/mm3 (0.00-0.031); Immature Granulocyte Percent A 0.3 % (0-0.5); Lymphocytes Absolute Auto 2.66 K/mm3 (0.9-3.2); Lymphocytes Percent Auto 37.1 % (18.3-44.2); Mean Corpuscular HGB Conc 34.3 g/dl (32-36); Mean Corpuscular Hemoglobin 29.2 pg (26-34); Mean Corpuscular Volume 85.2 fl (80-100); Monocytes Absolute Auto 0.6 K/mm3 (0.1-0.6); Monocytes Percent Auto 8.6 % (2.6-8.5); Neutrophils Absolute Auto 3.4 K/mm3 (1.3-6.7); Neutrophils Percent Auto 47.3 % (45.5-73.1); Platelet Count Result 182 k/mm3 (150-375); Red Blood Count 2.91 M/mm3 (4.6-6.20); Red Cell Distribution Width 13.4 % (11.5-14.5); White Blood Count 7.2 K/mm3 (4.5-10.0)
[2020-11-21 06:00] VITALS: BP 131/66; PULSE 81; RESP 20; TEMP 36.4; O2SAT 98
--- NOTE | 2020-11-21 08:03 | PM.IMPN ---
Progress Note: A&P Assessment and Plan (1) Anxiety: Code(s): F41.9 - Anxiety disorder, unspecified Status: Chronic Assessment and Plan: Continue with patient's lorazepam. (2) High cholesterol: Code(s): E78.00 - Pure hypercholesterolemia, unspecified Status: Chronic Assessment and Plan: Continue with atorvastatin (3) JENNIFER (obstructive sleep apnea): Code(s): G47.33 - Obstructive sleep apnea (adult) (pediatric) Status: Chronic Assessment and Plan: Patient's home setting are somewhere between 10 and 16 on the BiPAP. (4) History of diabetes mellitus: Code(s): Z86.39 - Personal history of other endocrine, nutritional and metabolic disease Status: Chronic Assessment and Plan: Patient stated his last hemoglobin A1c was 5.8 and that he controls his diet. Additional Plan Hematochezia - patient has photos with BRBPR from home. Hgb 15 on admission, trending down with repeated bloody stool during admission. Colonoscopy 2 days ago with 2 clips at source of bleeding in ascending colon, which was at site of prior polypectomy. Planning to discharge this morning, however patient hemoglobin continues to trend down, to 8.5. For the time being will hold discharge. No thrombocytopenia or coagulopathy based on labs to explain why he keeps bleeding. Appreciate any GI recommendations regarding further management. Otherwise continue protonix, simethicone, trending hgb and transfuse when necessary. SCD for DVT ppx. Time Spent With Patient Time with patient: less than 15 minutes Subjective Date/time seen: 11/21/20 08:03 resting comfortably still having some bloody stool, but less than before Review of Systems Review of Systems: All systems reviewed & are unremarkable except as noted in HPI and below Exam Const: General: no acute distress Neck: Neck: no JVD Resp: Effort & Inspection: normal respiratory effort Auscultation: clear to auscultation bilaterally Cardio: Rate: regular rate Rhythm: regular rhythm GI: GI Palp: Yes Soft to palpation and No Tenderness to palpation present (GI) Objective Data Vital Signs Vital Signs: Vital Signs - 24 hr 11/20/20 22:00 11/21/20 06:00 Temperature 98.1 F 97.6 F Pulse Rate 99 81 Respiratory Rate 18 20 Blood Pressure 143/72 H 131/66 Pulse Oximetry 96 98 Intake/Output Intake/Output: Intake & Output 11/18/20 11/19/20 11/20/20 11/21/20 23:59 23:59 23:59 23:59 Intake Total 960 2160 540 Output Total 500 2000 800 Balance 460 160 -260 Meds/Results Medications: Active Medications Generic Name Dose Route Start Last Admin Trade Name Freq PRN Reason Stop Dose Admin Atorvastatin Calcium 40 mg 11/19/20 09:00 11/20/20 08:09 Atorvastatin 40 Mg Tablet PO 40 mg QAM MISAEL Administration Dextrose 12.5 gm 11/19/20 08:05 Dextrose 50% 25 Gm/50 Ml Syringe IV PUSH PRN PRN Hypoglycemia Protocol Glucagon 1 mg 11/19/20 08:05 Glucagon For Inj 1 Mg Vial IM PRN PRN Hypoglycemia Protocol Glucose 15 gm 11/19/20 08:05 Glucose Oral Gel 15 Gm Of Glucse In 37.5 Gm Tube PO PRN PRN Hypoglycemia Protocol Dextrose 1,000 mls @ 100 mls/hr 11/19/20 08:05 Dextrose 5% 1,000 Ml IVPB PRN PRN Hypoglycemia Protocol Loratadine 10 mg 11/19/20 09:00 11/20/20 08:09 Loratadine 10 Mg Tablet PO 10 mg QAM MISAEL Administration Lorazepam 1 mg 11/19/20 00:44 Lorazepam (*Crx) 1 Mg Tablet PO BID PRN Anxiety Pantoprazole Sodium 40 mg 11/21/20 09:00 Pantoprazole 40 Mg Tablet PO QAM MISAEL Simethicone 0.6 ml 11/19/20 13:22 11/19/20 13:22 Simethicone Oral Suspension 20 Mg/0.3 Ml 30 Ml Bottle PO 0.6 ml ONCE PRN Administration Gas Discomfort Labs Labs: Laboratory Results - last 24 hr 11/20/20 11/20/20 11/21/20 08:09 13:42 04:45 WBC 7.2 RBC 2.91 L Hgb 9.9 L 9.2 L 8.5 L Hct 28.8 L 26.2 L 24.8
[2020-11-21 08:42] VITALS: RESP 20; O2SAT 98
[2020-11-21] MEDS: PANTOPRAZOLE 40 MG TABLET PO (08:42)
[2020-11-21] MEDS: LORATADINE 10 MG TABLET PO (08:42)
[2020-11-21] MEDS: ATORVASTATIN 40 MG TABLET PO (08:42)
--- NOTE | 2020-11-21 13:24 | WPDGIPROGNO ---
Progress Note: A&P Additional Plan GI Odilia for Karla 21 Nov 2020 No BRBPR since yesterday am. Denies AP, N, V. [place] po VSS soft/NT Hct 32-> 26->25 A/P Acute blood loss anemia with hematochezia: - Post-polypectomy bleed - S/p Clip x [address] Acosta - Bleeding has resolved; slight decreased H+H is equilibration - Care with aspirin, NSAIDS and anticoagulants x 3 weeks - OK with me for discharge; follow-up with Dr. Acosta one month - Case discussed with Dr. Lucia, patient and daughter, Quoc Mcghee, [facility] [phone] Cc: Dr. Alysha Cantrell; Dr. Ruperto Acosta Subjective Date/time seen: 11/21/20 13:25 Objective Data Vital Signs Vital Signs: Vital Signs - 24 hr 11/20/20 22:00 11/21/20 06:00 11/21/20 08:42 Temperature 36.7 C 36.4 C Pulse Rate 99 81 Respiratory Rate 18 20 20 Blood Pressure 143/72 H 131/66 Pulse Oximetry 96 98 98 Intake/Output Intake/Output: Intake & Output 11/18/20 11/19/20 11/20/20 11/21/20 23:59 23:59 23:59 23:59 Intake Total 960 2160 1460 Output Total 500 2000 1500 Balance 460 160 -40 Meds/Results Medications: Active Medications Generic Name Dose Route Start Last Admin Trade Name Freq PRN Reason Stop Dose Admin Atorvastatin Calcium 40 mg 11/19/20 09:00 11/21/20 08:42 Atorvastatin 40 Mg Tablet PO 40 mg QAM MISAEL Administration Dextrose 12.5 gm 11/19/20 08:05 Dextrose 50% 25 Gm/50 Ml Syringe IV PUSH PRN PRN Hypoglycemia Protocol Glucagon 1 mg 11/19/20 08:05 Glucagon For Inj 1 Mg Vial IM PRN PRN Hypoglycemia Protocol Glucose 15 gm 11/19/20 08:05 Glucose Oral Gel 15 Gm Of Glucse In 37.5 Gm Tube PO PRN PRN Hypoglycemia Protocol Dextrose 1,000 mls @ 100 mls/hr 11/19/20 08:05 Dextrose 5% 1,000 Ml IVPB PRN PRN Hypoglycemia Protocol Loratadine 10 mg 11/19/20 09:00 11/21/20 08:42 Loratadine 10 Mg Tablet PO 10 mg QAM MISAEL Administration Lorazepam 1 mg 11/19/20 00:44 Lorazepam (*Crx) 1 Mg Tablet PO BID PRN Anxiety Pantoprazole Sodium 40 mg 11/21/20 09:00 11/21/20 08:42 Pantoprazole 40 Mg Tablet PO 40 mg QAM MISAEL Administration Simethicone 0.6 ml 11/19/20 13:22 11/19/20 13:22 Simethicone Oral Suspension 20 Mg/0.3 Ml 30 Ml Bottle PO 0.6 ml ONCE PRN Administration Gas Discomfort Labs Labs: Laboratory Results - last 24 hr 11/20/20 11/21/20 11/21/20 13:42 04:45 04:45 WBC 7.2 RBC 2.91 L Hgb 9.2 L 8.5 L Hct 26.2 L 24.8 L MCV 85.2 MCH 29.2 MCHC 34.3 RDW 13.4 Plt Count 182 MPV 10.0 Immature Gran % (Auto) 0.3 Neut % (Auto) 47.3 Lymph % (Auto) 37.1 [place] % (Auto) 8.6 H Eos % (Auto) 5.9 H Baso % (Auto) 0.8 Lymph # (Auto) 2.66 [place] # (Auto) 0.6 Eos # (Auto) 0.4 H Baso # (Auto) 0.1 Abs Immat Gran (auto) 0.02 Absolute Neuts (auto) 3.4 Absolute Nucleated RBC 0.0 Nucleated RBC % 0.0 Sodium 139 Potassium 3.6 Chloride 106 Carbon Dioxide 30 Anion Gap 3 L BUN 17 Creatinine 1.20 Estim Creat Clear Calc 67 Estimated GFR > 60 Glucose 119 H Calcium 7.9 L Phosphorus 4.4 Magnesium 2.1 Total Bilirubin 0.2 AST 15 L ALT 18 Alkaline Phosphatase 46 Total Protein 5.0 L Albumin 3.1 L
[2020-11-21 14:01] VITALS: BP 141/75; PULSE 96; RESP 18; TEMP 36.1; O2SAT 99
[2020-11-21 20:01] VITALS: BP 138/67; PULSE 96; RESP 17; TEMP 36.9; O2SAT 94
[2020-11-21 22:25] VITALS: PULSE 88; O2SAT 98
[2020-11-21 23:45] VITALS: PULSE 90; RESP 18; O2SAT 96
[2020-11-22 03:54] VITALS: BP 144/76; PULSE 90; RESP 17; TEMP 36.8; O2SAT 100
[2020-11-22 05:19] LABS: Basophils Absolute Auto 0.1 K/mm3 (0.0-0.1); Basophils Percent Auto 0.9 % (0.2-1.2); Eosinophils Absolute Auto 0.3 K/mm3 (0-0.3); Eosinophils Percent Auto 4.5 % (0-4.4); Hematocrit 24.6 % (42.0-52.0); Hemoglobin 8.3 g/dL (14.0-18.0); Immature Granulocyte Absolute 0.03 K/mm3 (0.00-0.031); Immature Granulocyte Percent A 0.4 % (0-0.5); Lymphocytes Absolute Auto 2.16 K/mm3 (0.9-3.2); Lymphocytes Percent Auto 28.3 % (18.3-44.2); Mean Corpuscular HGB Conc 33.7 g/dl (32-36); Mean Corpuscular Hemoglobin 29.7 pg (26-34); Mean Corpuscular Volume 88.2 fl (80-100); Mean Platelet Volume 10.4 fl (7.4-10.4); Monocytes Absolute Auto 0.6 K/mm3 (0.1-0.6); Monocytes Percent Auto 8.4 % (2.6-8.5); Neutrophils Absolute Auto 4.4 K/mm3 (1.3-6.7); Neutrophils Percent Auto 57.5 % (45.5-73.1); Platelet Count Result 205 k/mm3 (150-375); Red Blood Count 2.79 M/mm3 (4.6-6.20); Red Cell Distribution Width 13.7 % (11.5-14.5); White Blood Count 7.6 K/mm3 (4.5-10.0)
[2020-11-22 05:47] LABS: Alanine Aminotransferase 20 U/L (4-50); Albumin Level 3.5 g/dL (3.5-5.1); Alkaline Phosphatase 37 U/L (38-126); Anion Gap 7 mmol/L (8-16); Aspartate Amino Transferase 21 U/L (17-59); Bilirubin,Total 0.4 mg/dL (0.2-1.3); Blood Urea Nitrogen 16 mg/dL (9-20); Calcium 7.8 mg/dL (8.4-10.2); Carbon Dioxide 26 mmol/L (22-30); Chloride 105 mmol/L (98-107); Estimated CRCL calculation 73 ml/min; Estimated Glomerular Filt Rate > 60; Glucose 120 mg/dL (65-110); Magnesium 2.1 mg/dL (1.6-2.3); Phosphorus 4.1 mg/dL (2.5-4.5); Potassium 3.6 mmol/L (3.4-5.0); Sodium 138 mmol/L (137-145)
--- NOTE | 2020-11-22 07:02 | WPDGIPROGNO ---
Progress Note: A&P Assessment and Plan (1) History of colon polyps: Code(s): Z86.010 - Personal history of colonic polyps Status: Acute Assessment and Plan: Benign colon polyps removed from colon. Follow-up colonoscopy in 3-5 years anticipated. (2) Post-polypectomy bleeding: Status: Acute Assessment and Plan: Patient had bleeding from polypectomy site. Two clips bili add on Sunday. He has had some decline in hemoglobin consistent with equilibration subsequently. Hemoglobin essentially stable for several days. No active bleeding. Stools have returned to normal. No abdominal pain. Plan for discharge with follow-up CBC in 1 week. Subjective Date/time seen: 11/22/20 07:02 Patient alert feels good this morning. No blood in his stools. No abdominal pain. Tolerating diet. He passed stool blood in stools on Sunday morning. Has done well since. Review of Systems Review of Systems: All systems reviewed & are unremarkable except as noted in HPI and below Exam Narrative: Patient's vital signs are stable. HEENT exam reveals no icterus. Lungs are clear. Heart without murmur. Abdomen bowel sounds present soft nontender with no organomegaly. Objective Data Vital Signs Vital Signs: Vital Signs - 24 hr 11/21/20 08:42 11/21/20 14:01 11/21/20 20:01 Temperature 97.0 F L 98.5 F Pulse Rate 96 96 Respiratory Rate 20 18 17 Blood Pressure 141/75 H 138/67 Pulse Oximetry 98 99 94 11/21/20 22:25 11/21/20 23:45 11/22/20 03:54 Temperature 98.2 F Pulse Rate 88 90 90 Respiratory Rate 18 17 Blood Pressure 144/76 H Pulse Oximetry 98 96 100 Intake/Output Intake/Output: Intake & Output 11/19/20 11/20/20 11/21/20 11/22/20 23:59 23:59 23:59 23:59 Intake Total 960 2160 2050 540 Output Total 500 2000 2300 700 Balance 460 160 -250 -160 Meds/Results Medications: Active Medications Generic Name Dose Route Start Last Admin Trade Name Freq PRN Reason Stop Dose Admin Atorvastatin Calcium 40 mg 11/19/20 09:00 11/21/20 08:42 Atorvastatin 40 Mg Tablet PO 40 mg QAM MISAEL Administration Dextrose 12.5 gm 11/19/20 08:05 Dextrose 50% 25 Gm/50 Ml Syringe IV PUSH PRN PRN Hypoglycemia Protocol Glucagon 1 mg 11/19/20 08:05 Glucagon For Inj 1 Mg Vial IM PRN PRN Hypoglycemia Protocol Glucose 15 gm 11/19/20 08:05 Glucose Oral Gel 15 Gm Of Glucse In 37.5 Gm Tube PO PRN PRN Hypoglycemia Protocol Dextrose 1,000 mls @ 100 mls/hr 11/19/20 08:05 Dextrose 5% 1,000 Ml IVPB PRN PRN Hypoglycemia Protocol Loratadine 10 mg 11/19/20 09:00 11/21/20 08:42 Loratadine 10 Mg Tablet PO 10 mg QAM MISAEL Administration Lorazepam 1 mg 11/19/20 00:44 Lorazepam (*Crx) 1 Mg Tablet PO BID PRN Anxiety Pantoprazole Sodium 40 mg 11/21/20 09:00 11/21/20 08:42 Pantoprazole 40 Mg Tablet PO 40 mg QAM MISAEL Administration Simethicone 0.6 ml 11/19/20 13:22 11/19/20 13:22 Simethicone Oral Suspension 20 Mg/0.3 Ml 30 Ml Bottle PO 0.6 ml ONCE PRN Administration Gas Discomfort Labs Labs: Laboratory Results - last 24 hr 11/22/20 11/22/20 04:45 04:45 WBC 7.6 RBC 2.79 L Hgb 8.3 L Hct 24.6 L MCV 88.2 MCH 29.7 MCHC 33.7 RDW 13.7 Plt Count 205 MPV 10.4 Immature Gran % (Auto) 0.4 Neut % (Auto) 57.5 Lymph % (Auto) 28.3 [place] % (Auto) 8.4 Eos % (Auto) 4.5 H Baso % (Auto) 0.9 Lymph # (Auto) 2.16 [place] # (Auto) 0.6 Eos # (Auto) 0.3 Baso # (Auto) 0.1 Abs Immat Gran (auto) 0.03 Absolute Neuts (auto) 4.4 Absolute Nucleated RBC 0.0 Nucleated RBC % 0.0 Sodium 138 Potassium 3.6 Chloride 105 Carbon Dioxide 26 Anion Gap 7 L BUN 16 Creatinine 1.10 Estim Creat Clear Calc 73 Estimated GFR > 60 Glucose 120 H Calcium 7.8 L Phosphorus 4.1 Magnesium 2.1 Total Bilirubin 0.4 AST 21 ALT 20 Alkaline
[2020-11-22] MEDS: PANTOPRAZOLE 40 MG TABLET PO (08:05)
[2020-11-22] MEDS: LORATADINE 10 MG TABLET PO (08:05)
[2020-11-22] MEDS: ATORVASTATIN 40 MG TABLET PO (08:05)
--- NOTE | 2020-11-22 09:48 | PM.DS ---
DS: Admitting Diagnosis Discharge Date 11/22/20 Admitting Diagnosis Bright red blood per rectum DS: Discharge Diagnosis Discharge Diagnosis (1) GI bleed: Code(s): K92.2 - Gastrointestinal hemorrhage, unspecified Status: Acute (2) Acute blood loss anemia: Code(s): D62 - Acute posthemorrhagic anemia Status: Acute (3) Post-polypectomy bleeding: Status: Acute (4) History of colon polyps: Code(s): Z86.010 - Personal history of colonic polyps Status: Acute (5) JENNIFER (obstructive sleep apnea): Code(s): G47.33 - Obstructive sleep apnea (adult) (pediatric) Status: Chronic (6) History of diabetes mellitus: Code(s): Z86.39 - Personal history of other endocrine, nutritional and metabolic disease Status: Chronic (7) Anxiety: Code(s): F41.9 - Anxiety disorder, unspecified Status: Chronic (8) High cholesterol: Code(s): E78.00 - Pure hypercholesterolemia, unspecified Status: Chronic DS: Summary Hospital Course Reason for hospitalization: 64-year-old male with hypertension, sleep apnea and diabetes presents to the ED with bright red blood per rectum after colonoscopy with polypectomy 2 days prior. Please see H&P for details. Hospital Course: Patient on admission and hemoglobin 15. He had a nuclear medicine bleeding scan which showed active bleeding in the right lower quadrant. GI was consulted patient underwent colonoscopy on 11/19/2020. Colonoscopy showed ascending colon ulcer with visible blood vessel that was actively bleeding. This was clipped. Hemoglobin was monitored serially. Hemoglobin drifted down to the 8 range. No further evidence of bleeding. He did receive a transfusion. He is asymptomatic from the anemia. 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 He remained afebrile. He overall did well to discharged home on 11/22/2020. Status at Discharge Cognitive/behavioral status at discharge: Stable Time Spent with Patient Time attestation: Total time spent providing and/or coordinating discharge services: 32 minute Time spent: Greater than 30 minutes Exam Narrative: AF 98.2 144/76 90 17 100% Gen - NARD Chest - CTA bilaterally, nml RR CV - RRR S1/S2 Abd - Soft, NT/ND, Positive BS Ext - No pedal edema Neuro - Alert and oriented. Nonfocal exam. Psych - Nml mood and affect Skin - Warm and dry DS: Data Data Completed and Pending Labs on day of discharge: Labs from last 24 hours 11/22/20 11/22/20 04:45 04:45 WBC 7.6 RBC 2.79 L Hgb 8.3 L Hct 24.6 L MCV 88.2 MCH 29.7 MCHC 33.7 RDW 13.7 Plt Count 205 MPV 10.4 Immature Gran % (Auto) 0.4 Neut % (Auto) 57.5 Lymph % (Auto) 28.3 [place] % (Auto) 8.4 Eos % (Auto) 4.5 H Baso % (Auto) 0.9 Lymph # (Auto) 2.16 [place] # (Auto) 0.6 Eos # (Auto) 0.3 Baso # (Auto) 0.1 Abs Immat Gran (auto) 0.03 Absolute Neuts (auto) 4.4 Absolute Nucleated RBC 0.0 Nucleated RBC % 0.0 Sodium 138 Potassium 3.6 Chloride 105 Carbon Dioxide 26 Anion Gap 7 L BUN 16 Creatinine 1.10 Estim Creat Clear Calc 73 Estimated GFR > 60 Glucose 120 H Calcium 7.8 L Phosphorus 4.1 Magnesium 2.1 Total Bilirubin 0.4 AST 21 ALT 20 Alkaline Phosphatase 37 L Total Protein 6.0 L Albumin 3.5 Discharge Plan Discharge Attending physician on discharge: Ziyad Thompson Consulting providers: Jg Acosta Discharging Clinician: Ziyad Thompson Anticipated Discharge Date/Time: 11/22/20 09:59 Patient Disposition: Home, Self-Care Activity: as tolerated Diet: heart healthy Discharge Instructions: Please avoid large gathering, wear face coverings in public and practice social distance. Contact your doctor or call 911 and come to the Emergency Room if you have lightheadedness with standing or other worrisome sympt
== END 2020-11-22 10:41 | disposition home or self-care (01) | DRG 920 ==
LOC: ANHED 19:35 → ANH2MED 22:01
PROVIDERS: Emergency Medicine; Internal Medicine; Internal Medicine Gastroenterology; Nurse Practitioner; Physician Assistant; Admitting Provider Hospitalist; Emergency Provider Emergency Medicine; PCP Family Medicine Adolescent Medicine; Visit Provider Internal Medicine
PROC: 0DJD8ZZ Inspection of Lower Intestinal Tract, Via Natural or Artificial Opening Endoscopic (ICD-10-PCS; CPT 45378; principal; 2020-11-19 14:00)
DX: K91.840 Postprocedural hemorrhage of a digestive system organ or structure following a digestive system procedure (principal); D62 Acute posthemorrhagic anemia; K63.3 Ulcer of intestine; Z86.010 Personal history of colon polyps; K21.9 Gastro-esophageal reflux disease without esophagitis; G47.33 Obstructive sleep apnea (adult) (pediatric); F41.9 Anxiety disorder, unspecified; E78.00 Pure hypercholesterolemia, unspecified; I10 Essential (primary) hypertension; G47.30 Sleep apnea, unspecified; Z85.46 Personal history of malignant neoplasm of prostate; Z96.653 Presence of artificial knee joint, bilateral; E66.01 Morbid (severe) obesity due to excess calories; Z68.39 Body mass index [BMI] 39.0-39.9, adult
CPT/HCPCS: 36415; 78278; 80053; 83735; 84100; 84443; 85014; 85018; 85025; 85610; 85730; 86850; 86900; 86901; 88305; 96374; 99285; A9270; A9560; C9113; G0378; J2001; J2704; J7120

== ENCOUNTER 2020-11-29 06:53 | Outpatient (CLI) | payer MEDICARE, SELFPAY ==
[2020-11-29 07:30] LABS: Hematocrit 28.8 % (42.0-52.0); Hemoglobin 9.4 g/dL (14.0-18.0); Mean Corpuscular HGB Conc 32.6 g/dl (32-36); Mean Corpuscular Hemoglobin 29.6 pg (26-34); Mean Corpuscular Volume 90.6 fl (80-100); Mean Platelet Volume 9.1 fl (7.4-10.4); Platelet Count Result 316 k/mm3 (150-375); Red Blood Count 3.18 M/mm3 (4.6-6.20); Red Cell Distribution Width 16.2 % (11.5-14.5); White Blood Count 5.5 K/mm3 (4.5-10.0)
== END 2020-11-29 06:54 | disposition home or self-care (01) ==
PROVIDERS: PCP Family Medicine Adolescent Medicine; Visit Provider Internal Medicine
DX: D62 Acute posthemorrhagic anemia (principal)
CPT/HCPCS: 36415; 85027

== ENCOUNTER 2021-06-09 01:37 | Day surgery (SDC) | payer MEDICARE, SELFPAY ==
[2021-06-08 13:35] VITALS: BMI 40.0
[2021-06-09] VITALS (7 sets, daily range): BP systolic 120–148; BP diastolic 72–87; PULSE 60–79; RESP 11–20; TEMP 36.2; O2SAT 95–100; BMI 40.1
[2021-06-09 09:23] LABS: Basophils Absolute Auto 0.1 K/mm3 (0.0-0.1); Basophils Percent Auto 1.2 % (0.2-1.2); Eosinophils Absolute Auto 0.3 K/mm3 (0-0.3); Eosinophils Percent Auto 4.4 % (0-4.4); Hematocrit 43.8 % (42.0-52.0); Hemoglobin 14.6 g/dL (14.0-18.0); Immature Granulocyte Absolute 0.01 K/mm3 (0.00-0.031); Immature Granulocyte Percent A 0.2 % (0-0.5); Lymphocytes Absolute Auto 1.64 K/mm3 (0.9-3.2); Mean Corpuscular HGB Conc 33.3 g/dl (32-36); Mean Corpuscular Hemoglobin 27.8 pg (26-34); Mean Corpuscular Volume 83.4 fl (80-100); Mean Platelet Volume 9.5 fl (7.4-10.4); Monocytes Absolute Auto 0.6 K/mm3 (0.1-0.6); Neutrophils Absolute Auto 3.5 K/mm3 (1.3-6.7); Neutrophils Percent Auto 58.2 % (45.5-73.1); Platelet Count Result 209 k/mm3 (150-375); Red Blood Count 5.25 M/mm3 (4.6-6.20); Red Cell Distribution Width 17.5 % (11.5-14.5); White Blood Count 6.1 K/mm3 (4.5-10.0)
[2021-06-09 09:34] LABS: Anion Gap 6 mmol/L (8-16); Blood Urea Nitrogen 16 mg/dL (9-20); Calcium 8.5 mg/dL (8.4-10.2); Carbon Dioxide 28 mmol/L (22-30); Chloride 106 mmol/L (98-107); Estimated CRCL calculation 62 ml/min; Estimated Glomerular Filt Rate 55; Glucose 147 mg/dL (65-110); INR 1.1; Potassium 3.9 mmol/L (3.4-5.0); Prothrombin Time 13.3 Seconds (11.1-14.7); Sodium 140 mmol/L (137-145)
--- NOTE | 2021-06-09 10:10 | SUR.PHASEII ---
1006. pt arrived to [facility], pt c/o mild chest discomfort radiating to left arm. This rn called and notified Dr Murry. EKG order & informed him pt took medication on empty stomach this morning & pt believes that could be part of the problem. Ok to give Mylanta 30mls for chest discomfort.
--- NOTE | 2021-06-09 10:24 | WPDHPUPDATE1 ---
History and Physical Update Update Date/Time: 06/09/21 10:24 History and Physical has been reviewed, including an updated exam of the patient. There are NO changes in the patient's condition. Risks, benefits, and alternatives have been discussed and questions answered. Patient agrees to proceed with procedure.
--- NOTE | 2021-06-09 10:24 | WPDMODSED ---
Moderate Sedation Note-Pt Data Patient Data Allergies Allergy/AdvReac Type Severity Reaction Status Date / Time No Known Allergies Allergy Verified 06/09/21 09:07 Home Medications Medication Instructions Recorded Confirmed Type cetirizine 10 mg capsule 10 mg PO DAILY 05/07/20 06/08/21 History famotidine 20 mg tablet 20 mg PO PRN PRN 05/07/20 06/08/21 History lorazepam 2 mg tablet 1 mg PO BID PRN 05/07/20 06/08/21 History pantoprazole 20 mg tablet,delayed 40 mg PO QAM 05/07/20 06/08/21 History release amoxicillin 500 mg capsule See Rx Instructions PO .COMPLEX 05/09/21 06/08/21 History buspirone 10 mg tablet 10 mg PO BID #60 tablet 05/09/21 06/08/21 Rx omega-3s 350 [id number] 1 cap PO DAILY cap 05/09/21 06/08/21 History [id number] oil 600 mg capsule tadalafil 5 mg tablet 5 mg PO DAILY 05/09/21 06/08/21 History atorvastatin 40 mg tablet 40 mg PO QAM #90 tablet 06/01/21 06/08/21 Rx aspirin 81 mg PO DAILY 06/08/21 06/08/21 History Current Medications: Active Medications Sodium Chloride (Normal Saline Iv) 500 mls @ 100 mls/hr IV CONT .Q5H MISAEL Sedation/Anesthesia: No previous sedation/anesthesia problems (including family history). [facility] Past Medical History Medical History Abnormal colonoscopy 11/16 Tubular adenoma Repeat 11/19 GI bleed History of colon polyps History of prostate cancer 07/16 Hx of malignant neoplasm of prostate (~06/2020) Surgical History Surgical History H/O colonoscopy with polypectomy 11/16 Repeat 11/19 H/O right inguinal hernia repair 07/15/20 Repair sliding right inguinal hernia History of bilateral knee replacement right 2017 Left 2015 History of prostatectomy (~06/2020) 07/16 Dr. Campoverde History of surgery on arm both wrist Family History Family History Father Colon cancer Hypertension Mother Hypertension Blind Other Hypertension Social History Social History (Updated 05/09/21 @ 14:39 by Anita Coates MA) Social History: The patient is . Is a retired pharmacist. The patient's daughter is the durable power commercial litigation attorney for healthcare. The patient desires to be a full code. The patient stated he used to drink alcohol in his middle a just but no longer drinks any alcohol. He is lifelong non smoker. No alcohol or illicit drugs. He only has the 1 daughter. Smoking status: Never smoker Second hand tobacco smoke exposure: Yes Alcohol intake: current Drinks per week: 4 Substance use: never Substance use type: does not use Living arrangements: alone Additional living arrangements comments: daughter is staying over night Additional occupation/education comments: Pharmacist Gender identity (if verbalized by the patient): Male Spiritual care concerns: No Agree to blood products: Yes Mod Sed Physical Exam Physical Exam Pre Procedural Exam: Normal: Appearance, Eyes, Ears, Nose, Neck, Throat, Airway, Lungs, Heart Size, Heart Rate, Heart Rhythm, Neuro Exam, Abdomen, Liver, Kidneys, Spleen, Breasts, Genitalia, Extremities and Skin Hours since solid foods: 8 Hours since liquid intake: 8 Mallampati Classification: class 1 Internal Medicine - PN: Obj Da Vital Signs Vital Signs: Vital Signs - 24 hr 06/09/21 09:12 Temperature 36.2 C L Pulse Rate 79 Respiratory Rate 17 Blood Pressure 148/87 H Pulse Oximetry 100 Meds/Results Medications: Active Medications Generic Name Dose Route Start Last Admin Trade Name Freq PRN Reason Stop Dose Admin Sodium Chloride 500 mls @ 100 mls/hr 06/09/21 09:00 Normal Saline Iv IV CONT .Q5H MISAEL Labs CBC & Chem 7: 06/09/21 09:06 06/09/21 09:06 Labs: Laboratory Results - last 24 hr 06/09/21 06/09/21 06/09/21 09:06 09:06 09:06 WBC 6.1 RBC 5.25 Hgb
--- NOTE | 2021-06-09 10:25 | WPDCARDPROC ---
Cardiac Cath Procedure Note Date of procedure:: 06/09/21 Performing physician:: Florentin Murry MD Indication:: chest pain Brief clinical history:: this 65-year-old patient with past history of sleep apnea on CPAP, GI bleeding and prostate cancer and who had cardiac catheterization 2011 and was told that there is 30% stenosis an artery. He states that he always failed his stress tests in the past. He now complains of left upper anterior chest pain when he does cycling. It comes after about 1 mi of biking with associated dyspnea and last about 20 minutes. Procedure Procedure performed:: 1-Moderate sedation that started at 1032and ended at 10:55 a.m. total duration 23 minutes using3 mg of Versed and 75mcg fentanyl. The registered nurse was carito burroughs 2-Selective left and right coronary angiogram. 3-Left heart catheterization with measurement of LVEDP and measurement of gradient across aortic valve. 4-Right common femoral arterial angiogram. 5-Deployment of 6 [place] Angio-Seal. Sedation/Medication given:: Moderate sedation. Access site:: Right common femoral artery. Estimated blood loss:: 10cc Procedure note:: After informed consent patient was brought in to laboratory miller with the was draped and prepped in usual manner. Moderate sedation was given and the right groin was infiltrated using 1% lidocaine. Five Jamaican sheath was obtained using micropuncture needle and the modified Seldinger technique. Selective left coronary angiogram was done using JL5 catheter with the tip of the catheter placed in the left main coronary artery. Selective right coronary angiogram was done using JR4 catheter with the tip of the catheter placed to the right coronary artery. After that 5 Jamaican pigtail catheter was advanced across the aortic valve into the left ventricle with measurement of LVEDP and measurement of gradient across aortic valve. Right common femoral arterial angiogram was done. Findings:: 1- left coronary artery is a large artery that divides into large LAD, large circumflex artery large ramus. Left main is free of disease. 2- left anterior descending artery is a large artery that runs and wraps around the apex. Proximal 40%. 3- leftcircumflex artery is a large artery And codominant. Minimal irregularities. The mid segment large OM1 that has ostial 40%. 4- right coronary artery is Large artery and codominant with diffuse minimal calcification and diffuse minimal irregularities. 5- LVEDP was 12 mm Hg and no gradient across aortic valve. 6- opening arterial pressure was 160/80 and closing pressure was 130/80 7- right femoral artery angiogram shows no significant disease in the right common femoral artery. Conclusion:: nonobstructive CAD as described above Assessment and Plan Additional Plan - optimize risk factor modification for coronary artery disease .
--- NOTE | 2021-06-09 12:11 | SUR.PHASEII ---
Discharge instructions read and given to pt and daughter. Pt and daughter states understanding.
== END 2021-06-09 13:43 | disposition home or self-care (01) ==
PROVIDERS: PCP Family Medicine Adolescent Medicine; Visit Provider Internal Medicine Cardiovascular Disease
PROC: 4A023N7 Measurement of Cardiac Sampling and Pressure, Left Heart, Percutaneous Approach (ICD-10-PCS; CPT 93452; principal; 2021-06-09 10:30)
DX: I25.10 Atherosclerotic heart disease of native coronary artery without angina pectoris (principal); R07.9 Chest pain, unspecified; G47.33 Obstructive sleep apnea (adult) (pediatric); Z85.46 Personal history of malignant neoplasm of prostate; Z79.82 Long term (current) use of aspirin; E66.01 Morbid (severe) obesity due to excess calories; Z68.41 Body mass index [BMI] 40.0-44.9, adult
CPT/HCPCS: 36415; 80048; 85025; 85610; 93458; A9270; C1760; C1887; C1894; G0269; J1644; J2250; J3010; J7040

== ENCOUNTER 2023-03-16 07:29 | Outpatient (CLI) | payer MEDICARE, SELFPAY ==
--- NOTE | ~2023-03-16 | CT_ITS ---
EXAMINATION: CT abdomen pelvis wo con DATE: 03/16/2023 07:56 INDICATION: Prostate cancer. Right groin pain. History of right inguinal hernia repair. TECHNIQUE: Computed tomography (CT) of the abdomen and pelvis was performed without intravenous contr ast. Automated exposure control and iterative reconstruction technique were employed. Exam dose: 154 2.48 mGy-cm total exam DLP. COMPARISON: 07/08/2020 CT abdomen pelvis with IV contrast material FINDINGS: The lung bases are clear. Heart size is within normal limits. No pericardial or pleural eff usion. Small sliding hiatal hernia. Numerous stones in the dependent aspect of the gallbladder. No gallbladder wall thickening is apparen t, nor any pericholecystic fat stranding or fluid. The liver, spleen, pancreas, adrenal glands are unremarkable on this limited noncontrast examination. There is moderate left renal scarring. Probable left renal parapelvic cysts. No right renal mass lesion is evident. No urinary tract calculus or hydroureteronephrosis. The prostate gland is absent. The urinary bladder appears unremarkable. A small portion of descending colon dips into a left inguinal hernia containing fat otherwise. No bow el obstruction or strangulation. Normal appendix. No bowel obstruction, bowel wall thickening, pneumatosis or intraperitoneal free air is detected. There is atherosclerotic calcification of the abdominal aorta. There is prominent calcified plaque at the origin of the left renal artery. No abdominal aortic aneurysm. No intraperitoneal or retroperito marcos or pelvic mass lesion or adenopathy is detected. Small fat-containing umbilical hernia. Status post right inguinal herniorrhaphy. There are occasional scattered small sclerotic lesions of the skeleton, probably bone islands. Kishore r, radionuclide bone scan would be more specific and sensitive for detection of prostate cancer skele constantino metastases. Diffuse idiopathic skeletal hyperostosis of the thoracic spine. There is particularly prominent hyper trophic degenerative change at the lumbar apophyseal joints with associated grade 1 anterolisthesis a t L4-5. IMPRESSION: Status post prostatectomy; no abdominal or pelvic abnormal mass or adenopathy is noted Scattered small sclerotic lesions of the axial skeleton may be bone islands. Radionuclide bone scan w ould be more sensitive for detection of any possible osteosclerotic prostate metastases Cholelithiasis Small sliding hiatal hernia Normal appendix Probable left renal parapelvic cysts Status post right inguinal herniorrhaphy Left inguinal hernia containing fat and a very small portion of the descending colon, without colon o bstruction or strangulation Reviewed, dictated and finalized at [facility]. Reviewed, dictated and finalized at [facility]. MATRON IMPRESSION: Status post prostatectomy; no abdominal or pelvic abnormal mass or adenopathy is noted Scattered small sclerotic lesions of the axial skeleton may be bone islands. Ra dionuclide bone scan would be more sensitive for detection of any possible oste osclerotic prostate metastases Cholelithiasis Small sliding hiatal hernia Normal appendix Probable left renal parapelvic cysts Status post right inguinal herniorrhaphy Left inguinal hernia containing fat and a very small portion of the descending colon, without colon obstruction or strangulation
== END 2023-03-16 07:30 | disposition home or self-care (01) ==
PROVIDERS: PCP Family Medicine Adolescent Medicine; Visit Provider Urology
DX: C61 Malignant neoplasm of prostate (principal); K44.9 Diaphragmatic hernia without obstruction or gangrene; K80.20 Calculus of gallbladder without cholecystitis without obstruction; K40.90 Unilateral inguinal hernia, without obstruction or gangrene, not specified as recurrent
CPT/HCPCS: 74176